=== PATIENT | male | born 1975 | race Caucasian/White ===

== ENCOUNTER → 2021-03-26 16:55 | Outpatient (CLI) | payer OTHER, SELFPAY ==
--- NOTE | ~2021-03-26 | XR_ITS ---
XR lumbar spine min 4V DATE: 03/26/2021 17:13 INDICATION: Low back pain with right sciatica TECHNIQUE: AP, lateral, bilateral oblique views, coned lateral lumbosacral view COMPARISON: 07/28/2012 lumbar spine FINDINGS: There is slight levoscoliosis of the lumbar spine. Normal alignment. No fracture or bone de struction. The lumbar pedicles are intact. Lumbar and lumbosacral interspaces are well preserved. No definite spondylolysis. No spondylolisthesis. The sacroiliac joints are intact. IMPRESSION: Slight levoscoliosis Reviewed, dictated and finalized at location A. IMPRESSION: Slight levoscoliosis
== END ==
PROVIDERS: PCP Family Medicine; Visit Provider Physician Assistant
DX: M54.41 Lumbago with sciatica, right side (principal); M41.86 Other forms of scoliosis, lumbar region
CPT/HCPCS: 72110

== ENCOUNTER 2021-07-18 09:04 | Outpatient (RCR) | payer OTHER, SELFPAY ==
[2021-07-18 09:13] VITALS: BMI 30.9
[2021-07-18 09:14] VITALS: BMI 30.9
== END 2021-10-01 09:42 | disposition home or self-care (01) ==
LOC: ANHDMC 09:04
PROVIDERS: PCP Family Medicine; Visit Provider Physician Assistant Medical
DX: E78.5 Hyperlipidemia, unspecified (principal); Z83.3 Family history of diabetes mellitus; Z83.438 Family history of other disorder of lipoprotein metabolism and other lipidemia; Z71.3 Dietary counseling and surveillance
CPT/HCPCS: 97802

== ENCOUNTER 2024-01-26 07:00 | Outpatient (NON) | payer OTHER, SELFPAY | END 2024-01-26 07:01 | disposition home or self-care (01) | LOC: ANHLAB 01-27 11:55 | PROVIDERS: PCP Family Medicine; Visit Provider Internal Medicine Gastroenterology | DX: Z12.11 Encounter for screening for malignant neoplasm of colon (principal); D12.5 Benign neoplasm of sigmoid colon | CPT/HCPCS: 88305 ==

== ENCOUNTER 2024-01-26 08:08 | Day surgery (SDC) | payer OTHER, SELFPAY ==
[2024-01-13 11:53] VITALS: BMI 27.8
[2024-01-26 09:06] VITALS: BP 119/73; PULSE 63; RESP 18; TEMP 37.1; O2SAT 100
[2024-01-26] MEDS: LACTATED RINGERS 1,000 ML 150 ML IV CONT (09:11)
--- NOTE | 2024-01-26 09:25 | PM.HPGS ---
History of Present Illness History of Present Illness Consent: Risks, benefits, and alternatives have been discussed and questions answered. Patient agrees to proceed with procedure. Chief complaint: Screening for neoplasm of colon Narrative: Edwardo Fischer is a 48 year old male Who was referred for colon cancer screening. Review of Systems Review of Systems: All systems reviewed & are unremarkable except as noted in HPI and below PMFSH Past Medical History Medical History Causalgia of lower limb Pilonidal fistula Reflex sympathetic dystrophy, unspecified Surgical History Surgical History H/O fasciotomy Status post repair of nerve Social History Social History Smoking status: Former smoker Smoking end date: 08/11/04 Additional smoking assessment comments: quit 20 years ago Alcohol intake: current Drinks per week: 2 Substance use type: does not use Lack of Transportation: YES Lack of Food: Sometimes True Current Housing: I Have Housing Concerned About Future Housing: No Difficulty Paying Gas/Electric Bills: No Difficulty Paying for Meds: No Currently Unemployed: No Education: Master's Degree or Higher Difficulty w/ Childcare or Family Care: No Living arrangements: with family Occupation/Education: occupation Gender identity (if verbalized by the patient): Male Spiritual care concerns: No Agree to blood products: Yes Meds Home Medications and Allergies Home Medications Medication Instructions Recorded Confirmed Type No Home Medications 01/12/24 01/26/24 History Allergies Allergy/AdvReac Type Severity Reaction Status Date / Time atorvastatin Allergy Unknown myalgias Verified 01/26/24 09:05 Vital Signs Vital Signs - 24 hr 01/26/24 09:06 Temperature 37.1 C Pulse Rate 63 Respiratory Rate 18 Blood Pressure 119/73 Pulse Oximetry 100 Oxygen Delivery Room Air Exam Const: General: alert Orientation/consciousness: patient oriented x3 Resp: Auscultation: clear to auscultation bilaterally Cardio: Rhythm: regular rhythm GI: GI Palp: Yes Soft to palpation and No Tenderness to palpation present (GI) Neuro: General: patient oriented x3 Assessment and Plan Assessment and plan (1) Colon cancer screening: Code(s): Z12.11 - Encounter for screening for malignant neoplasm of colon Status: Acute Assessment and Plan: Colonoscopy with possible biopsy or polypectomy or cautery or injection of substances.
--- NOTE | 2024-01-26 09:51 | P.PNAN_ITS ---
Anes - Initial Pre Proc Eval Procedure: Operation Date: 01/26/24 10:30 Proposed Procedures p Screening Colonoscopy - Ronnie Aquino MD Date/Time: 01/26/24 09:51 Surgeon: Ronnie Aquino MD Pre Op Diagnosis: Screening for neoplasm of colon Patient Data Age: 48 Gender: M Height: 1.83 m Weight: 92.1 kg Last Vital Signs Temp 37.1 C 01/26/24 09:06 Pulse 63 01/26/24 09:06 Resp 18 01/26/24 09:06 BP 119/73 01/26/24 09:06 Pulse Ox 100 01/26/24 09:06 O2 Del Method Room Air 01/26/24 09:06 Allergies Allergy/AdvReac Type Severity Reaction Status Date / Time atorvastatin Allergy Unknown myalgias Verified 01/26/24 09:05 Home Medications Medication Instructions Recorded Confirmed Type No Home Medications 01/12/24 01/26/24 History Patient hx anesthesia problems: none Family hx anesthesia problems: none Results Review: All pre-operative results and documents have been reviewed as part of the pre- operative evaluation. [facility] Past Medical History Medical History Causalgia of lower limb Pilonidal fistula Reflex sympathetic dystrophy, unspecified Surgical History Surgical History H/O fasciotomy Status post repair of nerve Social History Social History Smoking status: Former smoker Smoking end date: 08/11/04 Additional smoking assessment comments: quit 20 years ago Alcohol intake: current Drinks per week: 2 Substance use type: does not use Lack of Transportation: YES Lack of Food: Sometimes True Current Housing: I Have Housing Concerned About Future Housing: No Difficulty Paying Gas/Electric Bills: No Difficulty Paying for Meds: No Currently Unemployed: No Education: Master's Degree or Higher Difficulty w/ Childcare or Family Care: No Living arrangements: with family Occupation/Education: occupation Gender identity (if verbalized by the patient): Male Spiritual care concerns: No Agree to blood products: Yes Anes - Eval Final PreProcedure Day of Procedure 01/26/24 09:51 Patient weight: overweight Heart: regular rate and rhythm Lungs: clear to auscultation Airway: Mallampati scale class II Neurological: alert and oriented Last oral intake: >/= 8 hours ASA classification: II Emergent: no Anesthetic plan: proceed Anesthesia type and monitoring: general GIVS and standard monitoring Results Review: All pre-operative results and documents have been reviewed as part of the pre- operative evaluation. Informed Consent: The patient's anesthetic plan and its attendant risks and benefits were discussed with the patient/family/POA. Questions were solicited and answers provided to the satisfaction of the patient/family/POA.
[2024-01-26] MEDS: SIMETHICONE ORAL SUSPENSION 20 MG/0.3 ML 30 ML BOTTLE 0.6 ML IRRIGATION (10:43)
[2024-01-26 10:58] VITALS: BP 115/68; PULSE 60; RESP 18; O2SAT 99
[2024-01-26 11:08] VITALS: BP 108/74; PULSE 60; RESP 18; O2SAT 98
[2024-01-26 11:18] VITALS: BP 111/72; PULSE 62; RESP 18; O2SAT 98
--- NOTE | 2024-01-26 11:31 | WPDANESPN ---
Anes - Prog Note Post-Op Date/Time: 01/26/24 11:31 Cardiovascular status: normal Respiratory status: normal Airway patency: baseline Mental status: baseline Post-Op hydration status: normal Vital Signs: Last Vital Signs Temp 37.1 C 01/26/24 09:06 Pulse 62 01/26/24 11:18 Resp 18 01/26/24 11:18 BP 111/72 01/26/24 11:18 Pulse Ox 98 01/26/24 11:18 O2 Del Method Room Air 01/26/24 11:18 Pain Score (VAS): 0/10 I/O: Intake & Output 01/25/24 01/26/24 01/26/24 23:59 07:59 15:59 Intake Total 380 Balance 380 Patient Feedback: Patient satisfied with anesthetic care.
== END 2024-01-26 11:22 | disposition home or self-care (01) ==
PROVIDERS: PCP Family Medicine; Visit Provider Internal Medicine Gastroenterology
PROC: 0DJD8ZZ Inspection of Lower Intestinal Tract, Via Natural or Artificial Opening Endoscopic (ICD-10-PCS; CPT 45378; principal; 2024-01-26 10:30)
DX: Z12.11 Encounter for screening for malignant neoplasm of colon (principal); D12.5 Benign neoplasm of sigmoid colon
CPT/HCPCS: 45385

== ENCOUNTER 2024-12-03 19:48 | Emergency (ER) | payer OTHER, SELFPAY ==
[2024-12-03 19:49] VITALS: BP 139/76; PULSE 90; RESP 18; TEMP 36.7; O2SAT 96
--- OUTSIDE RECORDS SUMMARY | 2024-12-03 19:50 | XMS_ITS | Referral Summary ---
Author Organization [facility] Address [address] [place] [address] Care Team Providers Care Automatic Chief Name Role Phone Chelsea Mccormick MD Primary Care Provider [phone] Soco Weeks MD Unavailable [phone] Encounters Date Type Department Care Team Description 11/25/2024 12:30 PM CDT Office Visit [facility] [address] [facility] [address] [place] [address] Soco Weeks MD Adjustment disorders, with depressed mood (Primary Dx); Narcissistic personality disorder (HCC) 11/24/2024 1:00 PM CDT Office Visit [facility] [address] [place] [phone] Leon Byrd, PhD Adjustment disorder with mixed anxiety and depressed mood (Primary Dx); Other chronic pain 11/20/2024 12:08 PM CDT - 11/22/2024 3:46 PM CDT Hospital Encounter [facility] [address] [place] [id number] Jethro Pena MD Trillo Alvarez, Ludwig, MD Adjustment disorders, with depressed mood (Primary Dx); Cannabis use disorder, mild; Chronic pain syndrome; Normocytic anemia Discharge Disposition: Discharge to home or self care 11/19/2024 3:13 PM CDT - 11/20/2024 12:02 PM CDT Emergency [facility] [address] [place] [address] Anxiety (Primary Dx); Depression, unspecified depression type Discharge Disposition: Discharge to psych hospital or psych unit 11/17/2024 9:00 AM CDT Office Visit [facility] [place] [address] Leon Byrd, PhD Adjustment disorder with mixed anxiety and depressed mood (Primary Dx); Other chronic pain 11/11/2024 4:08 AM CDT - 11/11/2024 8:15 AM CDT Emergency [facility] [address] [place] [phone] Manolo Allen MD Beirne, Gregory J., Mental health problem (Primary Dx); Depression, unspecified depression type Discharge Disposition: Discharge to home or self care 11/10/2024 9:00 AM CDT Office Visit [facility] [place] [phone] Leon Byrd, PhD Adjustment disorder with mixed anxiety and depressed mood (Primary Dx); Other chronic pain 11/08/2024 Telephone [facility] [address] [place] [phone] Leon Byrd, PhD Mental Health Crisis (November called this morning concerned for Chelsea. She stated he is closing himself off from everyone. Her and their daughter recently left the house to stay with family b/c of how bad things have gotten. Chelsea has gotten rid of his phone and she is not able to contact ia. He has also started giving away other personal items such as jewelry. He is also calling family he has not spoken with in a while. She does not think he will harm himself but is not 100% sure due to his changes in behavior.); Mental Health Problem (Cont'd: November asked if we could recommend an inpatient facility to take Chelsea to because he is spiraling out of control in a bad way. I provided November the address & phone numbers to multiple facilities to get assistance: [facility] [phone], [address], [address]; [facility] [phone], [address] , [address], and Mental health crisis line [phone]. Blanca says she will call back if anything changes. Chelsea currently sees Dr. 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 Office Visit [facility] [address] [place] [phone] Leon Byrd, PhD Other chronic pain (Primary Dx); Adjustment disorder with mixed anxiety and depressed mood 10/06/2024 9:00 AM 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 Office Visit [facility] [address] [place] [phone] Leon Byrd, PhD Other chronic pain (Primary Dx); Adjustment disorder with mixed anxiety and depressed mood from Last 3 Months Allergies No known active allergies Medications traZODone (DESYREL) 50 mg tabletIndicatio ns:insomnia associated with depression Take 1 tablet (50 mg total) by mouth nightly as needed for sleep 30 tablet 1 5 01/22/20 25 Active melatonin 5 mg tablet Take 1 tablet (5 mg total) by mouth nightly as needed (sleep) 11/23/19 25 Discontinu ed(Stop Taking at Discharge) nicotine polacrilex (NICORETTE) 2 mg gum Chew 1 each (2 mg total) as needed for smoking cessation 11/23/19 25 Discontinu ed(Stop Taking at Discharge) acetaminophen (TYLENOL) 325 mg tablet Take 2 tablets (650 mg total) by mouth every 6 (six) hours as needed for pain (leg pain) 11/23/19 25 Discontinu ed(Stop Taking at Discharge) Active Problems Problem Noted Date Diagnosed Date Normocytic anemia 11/21/2024 Assessment & Plan (11/21/2024 10:27 AM CDT): Mild normocytic anemia x2, normal RDW. - Obtain iron panel, reticulocyte count, B12, folate Healthcare maintenance 11/21/2024 Assessment & Plan (11/21/2024 10:27 AM CDT): Lipids: Ordered HIV: Ordered HCV: Ordered HBV: Ordered A1c: Ordered Colon cancer screening: not done Lung cancer screening: Cannabis use disorder, mild 11/21/2024 Adjustment disorders, with depressed mood 2024 Pilonidal sinus without abscess 02/20/2015 Chronic pain 02/24/2013 Assessment & Plan (11/21/2024 10:27 AM CDT): - Tylenol, ibuprofen for pain - Scheduled lidocaine patches - Nicotine gum available Neuralgia 02/24/2013 Reflex sympathetic dystrophy 09/17/2012 Arthralgia of ankle 05/18/2012 Pain in extremity 01/16/2012 Immunizations Immunization Administration Dates Next Due Hep A / Hep B 01/18/2008 Tetanus toxoid, adsorbed 01/18/2008 Social History Tobacco Use Types Packs/Day Years Used Date Smoking Tobacco: Former Smokeless Tobacco: Never Alcohol Use Standard Drinks/Week Comments Yes 0 (1 standard drink = 0.6 oz pur e alcohol) [facility] Utilities Answer Date Recorded In the past 12 months has e [employer], gas, oil, or water [employer] threatened to shut off services in your home? No 11/20/2024 Humiliation, Afraid, Rape, and Kick questionnair e Answer Date Recorded Within the last year, have y ou been afraid of your partner or ex-partner? No 11/20/2024 Within the last year, have y ou been humiliated or emotionally abused in other ways by your partner or ex-partner? No Within the last year, have y ou been kicked, hit, slapped, or otherwise physically hurt by your partner or ex-partner? No 11/20/2024 Within the last year, have y ou been raped or forced to have any kind of sexual activity by your partner or ex-partner? No 11/20/2024 Social Connection and Isolat ion Panel [NHANES] Answer Date Recorded In a typical week, how many times do you talk on the phone with family, friends, or neighbors? More than three times a week 11/20/2024 How often do you get togethe r with friends or relatives? More than three times a week 11/20/2024 How often do you attend chur or mandaeism services? Never 11/20/2024 Do you belong to any clubs o r organizations such as lutheran groups, unions, fraternal or athletic groups, or school groups? No 11/20/2024 How often do you attend meet ings of the clubs or organizations you belong to? Never 11/20/2024 Are you , , di vorced, , never , or living with a partner? 11/20/2024 AUDIT-C Answer Date Recorded Q1: How often do you have a drink containing alc ohol? Patient declined 11/20/2024 Q2: How many drinks containi ng alcohol do you have on a typical day when you are drinking? Patient declined 11/20/2024 Q3: How often do you have si x or more drinks on one occasion? Patient declined 11/20/2024 Overall Financial Resource Strain (CARDIA) Answe r Date Recorded How hard is it for you to pa y for the very basics like food, housing, medical care, and heating? Not hard at all 11/20/2024 PHQ-2 Answer Date Recorded PHQ-2 Total Score (If total score is 3 or more points, staff should administer the PHQ-9) 2 11/20/2024 Exercise Vital Sign Answer Date Recorde d On average, how many days pe r week do you engage in moderate to strenuous exercise (like a brisk walk)? Patient declined On average, how many minutes do you engage in exercise at this level? Patient declined 11/20/2024 Hunger Vital Sign Answer Date Recorded Within the past 12 months, y ou worried that your food would run out before you got the money to buy more. Never true 11/21/19 25 Within the past 12 months, t he food you bought just didn't last and you didn't have money to get more. Never true 11/20/2024 PRAPARE - Transportation Answer Date Re corded In the past 12 months, has l ack of transportation kept you from medical appointments or from getting medications? No 11/09 In the past 12 months, has l ack of transportation kept you from meetings, work, or from getting things needed for daily living? No 11/20/2024 PHQ-9 Answer Date Recorded PHQ-9 Total Score 2 11/20/2024 Housing Stability Vital Sign Answer Eh e Recorded In the last 12 months, was t here a time when you were not able to pay the mortgage or rent on time? No 11/20/2024 Number of Times Moved in the Last Year Not on fi le 11/20/2024 At any time in the past 12 m [facility], were you homeless or living in a [facility] (including now)? No 11/20/2024 Personal Safety Answer Date Recorded Have you ever been in or are you currently in a harmful physical or emotional relationship or is someone making you feel afraid or unsafe? 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 Answer Date of Assessment Author No 11/20/2024 2:09 PM CDT Teresa Valdez LCSW * Are you blind or do you have serious difficulty seeing, even when wearing glasses? Answer Date of Assessment Author No 11/20/2024 2:09 PM CDT Teresa Valdez LCSW * Do you have serious difficulty walking or climbing stairs? Answer Date of Assessment Author No 11/20/2024 2:09 PM CDT Teresa Valdez LCSW * Do you have serious difficulty dressing or bathing? Answer Date of Assessment Author No 11/20/2024 2:09 PM CDT Teresa Valdez LCSW * Because of a physical, mental, or emotional condition, do you have serious difficulty doing errandsalone such as visiting the doctor? Answer Date of Assessment Author No 11/20/2024 2:09 PM CDT Teresa Valdez LCSW Mental Status * Because of a physical, mental, or emotional condition, do you have serious difficulty concentrating, remembering, or making decisions? (5 years old or older) Answer Entry Date Author No 11/20/2024 2:09 PM CDT Teresa Valdez LCSW Plan of Treatment Not on file Procedures Procedure Name Priority Date/Time Associated Diagnosis Comments HEMOGLOBIN A1C Routine 11/22/2024 5:22 AM CDT RETICULOCYTES Routine 11/22/2024 5:22 AM CDT FOLATE Routine 11/22/2024 5:22 AM CDT VITAMIN B12 Routine 11/22/2024 5:22 AM CDT FERRITIN Routine 11/22/2024 5:22 AM CDT IRON PROFILE W/ IBC Routine 11/22/2024 5 :22 AM CDT HEPATITIS B SURFACE ANTIGEN Routine 11/22/2024 5:22 AM CDT HEPATITIS B SURFACE ANTIBODY (IMMUNE STATUS) Routine 11/22/2024 5:22 AM CDT HEPATITIS B CORE ANTIBODY, TOTAL Routine 11/22/2024 5:22 AM CDT HEPATITIS C ANTIBODY Routine 11/22/2024 5:22 AM CDT HIV 1/2 ANTIBODY PLUS P24 ANTIGEN Routine 11/22/2024 5:22 AM CDT COVID-19 CORONAVIRUS RNA STAT 11/20/2024 5:30 AM CDT DRUGS OF ABUSE SCREEN, URINE WITHOUT CONFIRMATION STAT 11/19/2024 4:39 PM CDT URINALYSIS AND REFLEX TO MICROSCOPIC AND CULTURE STAT 11/19/2024 4:39 PM CDT LIPID PANEL STAT 11/19/2024 4:01 PM CDT EGFR STAT 11/19/2024 4:01 PM CDT DIFFERENTIAL AUTO STAT 11/19/2024 4:0 1 PM CDT THYROID FUNCTION CASCADE STAT 11/19/2024 4:01 PM CDT ETHANOL STAT 11/19/2024 4:01 PM CDT CBC WITH AUTO DIFFERENTIAL STAT 11/19/2024 4:01 PM CDT BASIC METABOLIC PANEL STAT 11/19/2024 4:01 PM CDT DRUGS OF ABUSE SCREEN, URINE WITHOUT CONFIRMATION STAT 11/11/2024 5:02 AM CDT URINALYSIS AND REFLEX TO MICROSCOPIC AND CULTURE STAT 11/11/2024 5:02 AM CDT EGFR STAT 11/11/2024 4:38 AM CDT BASIC METABOLIC PANEL STAT 11/11/2024 4:38 AM CDT DIFFERENTIAL AUTO STAT 11/11/2024 4:3 8 AM CDT ACETAMINOPHEN LEVEL STAT 11/11/2024 4 :38 AM CDT SALICYLATE LEVEL STAT 11/11/2024 4:3 8 AM CDT HEPATIC FUNCTION PANEL STAT 4:38 AM CDT ETHANOL STAT 11/11/2024 4:38 AM CDT CBC WITH AUTO DIFFERENTIAL STAT 11/11/2024 4:38 AM CDT from Last 3 Months Results * Iron profile w/ IBC (11/22/2024 5:22 AM CDT) Pathologist [facility] Iron 95 50 - 150 mcg/dL TIBC 299 250 - 400 mcg/dL [facility] Transferrin saturation 32 20 - 50 % [facility] Blood 11/22/2024 5:22 AM CDT 11/22/2024 9:34 AM CDT Earl Dos Santos MD LAB BLOOD ORDERABLES Final Result [facility] [place] [address] * HIV 1/2 Antibody plus p24 Antigen Blood (11/22/2024 5:22 AM CDT) Pathologist [facility] HIV 1/2 ab + p24 ag Nonreactive Nonreactive Comment:Nonreactive for HIV- 1 antigen and HIV-1/HIV-2 antibodies. No laboratory evidence of HIV infection. If acute HIV infection is suspected, consider testing for HIV-1 RNA. Current interpretive data was last revised on 22. Blood 11/22/2024 5:22 AM CDT 11/22/2024 9:34 AM CDT Earl Dos Santos MD LAB MICROBIOLOGY - G ENERAL ORDERABLES Final Result Performing Organization Address [facility] Co de Phone Number [facility] [place] [address] * Hepatitis C antibody Blood (11/22/2024 5:22 AM CDT) Hep C Ab Nonreactive Nonreactive Comment:Antibodies to HCV no t detected. Does NOT exclude the possibility of recent exposure to HCV. Current interpretive data was last revised on 22 Blood 11/22/2024 5:22 AM CDT 11/22/2024 9:34 AM CDT Earl Dos Santos MD LAB MICROBIOLOGY - G ENERAL ORDERABLES Final Result Performing Organization Address [facility] [place] [place] [address] * Hepatitis B core antibody, total Blood (11/22/2024 5:22 AM CDT) Pathologist [facility] Hep B core IgG/IgM Nonreactive Nonreactive Blood 11/22/2024 5:22 AM CDT 11/22/2024 9:34 AM CDT Earl Dos Santos MD LAB MICROBIOLOGY - G ENERAL ORDERABLES Final Result Performing Organization Address [facility] Co de Phone Number [facility] [place] [address] * Hepatitis B surface antibody (immune status) Blood (11/22/2024 5:22 AM CDT) HBsAb (immune status) Nonreactive Comment:This result is consi stent with a lack of immunity to Hepatitis B Virus when used in the setting of routine screening. Current interpretative data was last revised on 22 Blood 11/22/2024 5:22 AM CDT 11/22/2024 9:34 AM CDT Earl Dos Santos MD LAB MICROBIOLOGY - G ENERAL ORDERABLES Final Result Performing Organization Address [facility] Co de Phone Number [facility] [place] [address] * Hepatitis B Surface Antigen Blood (11/22/2024 5:22 AM CDT) Pathologist [facility] HepBsAg Nonreactive Nonreactive Blood 11/22/2024 5:22 AM CDT 11/22/2024 9:34 AM CDT Earl Dos Santos MD LAB MICROBIOLOGY - G ENERAL ORDERABLES Final Result Performing Organization Address [facility] de Phone Number [facility] [place] [place] [address] * (ABNORMAL) Reticulocyte Count (11/22/2024 5:22 AM CDT) [facility] Retics, absolute 106(H) 20 - 87 K/cumm Retics 2.5 0.4 - 2.9 % [facility] Reticulocyte Hgb 34.3 30.5 - 38.0 pg [facility] Blood 11/22/2024 5:22 AM CDT 11/22/2024 9:34 AM CDT Earl Dos Santos MD LAB BLOOD ORDERABLES Final Result Performing Organization Address [facility] Co de Phone Number [facility] [place] [address] * Hemoglobin A1c (11/22/2024 5:22 AM CDT) [facility] Hgb A1C 5.4 4.0 - 5.6 % Estimated Average Glucose 108 mg/dL [facility] Comment: The ADA recommends reporting an estimated Average Glucose (eAG) with all Hemoglobin A1c results using the equation derived from a study of 507 normal and diabetic adults. Minority populations were underrepresented and children were not included. (Diabetes Care 2020; 43(S1): S66-S76). The eAG is not equivalent to a fasting glucose. Blood 11/22/2024 5:22 AM CDT 11/22/2024 9:34 AM CDT Earl Dos Santos MD LAB BLOOD ORDERABLES Final Result Performing Organization Address [facility] Co de Phone Number [facility] [place] [address] * Folate (11/22/2024 5:22 AM CDT) Pathologist [facility] Folic acid >20.0 >=5.0 ng/mL Blood 11/22/2024 5:22 AM CDT 11/22/2024 9:34 AM CDT Earl Dos Santos MD LAB BLOOD ORDERABLES Final Result Performing Organization Address [facility] de Phone Number [facility] [place] [address] * Ferritin (11/22/2024 5:22 AM CDT) Pathologist [facility] Ferritin 197 30 - 400 ng/mL Blood 11/22/2024 5:22 AM CDT 11/22/2024 9:34 AM CDT Earl Dos Santos MD LAB BLOOD ORDERABLES Final Result Performing Organization Address [facility] de Phone Number [facility] [place] [address] * Vitamin B12 (11/22/2024 5:22 AM CDT) Vitamin B12 317 230 - 1,250 pg/mL Blood 11/22/2024 5:22 AM CDT 11/22/2024 9:34 AM CDT Earl Dos Santos MD LAB BLOOD ORDERABLES Final Result SHAILA NGUYEN [facility] [place] [address] * COVID-19 Coronavirus RNA Nasopharyngeal (11/20/2024 5:30 AM CDT) [facility] COVID-19 RNA Negative Negative Nasopharyngeal 11/20/2024 5: 30 AM CDT 11/20/2024 5:44 AM CDT Narrative [facility] [employer] - 11/20/2024 6:18 AM CDT Is the patient experiencing any symptoms consistent with COVID (eg. Fever, cough, shortness of breath)?->No What is the reason for testing?->Screening prior to Behavioral health admission Interpretive data Testing performed by [facility]. This test is performed using the [employer] Xpert Xpress CoV-2 plus assay. This is a real-time RT-PCR test intended for the qualitative detection of nucleic acid from the SARS-CoV-2. This assay has been cleared by the [place] Food and Drug administration. The performance characteristics have been verified by the [facility]. Results must be considered in the clinical context, and a negative result does not rule out infection. Interpretive data last revised 2024. Interpretive data Testing performed by [facility]. This test is performed using the [employer] Xpert Xpress CoV-2 plus assay. This is a real-time RT-PCR test intended for the qualitative detection of nucleic acid from the SARS-CoV-2. This assay has been cleared by the [place] Food and Drug administration. The performance characteristics have been verified by the [facility]. Results must be considered in the clinical context, and a negative result does not rule out infection. Interpretive data last revised 2024. us Latasha Mann NP LAB MICROBIOLOGY - GENERAL ORDERABLES Final Result [facility] [employer] [facility] [address] Department [place] [address] * Urinalysis reflex to microscopic and culture Urine (11/19/2024 4:39 PM CDT) Color, ur Straw Yellow Clarity, ur Clear Clear [facility] Specific gravity, ur 1.005 1.003 - 1.030 [facility] pH, urine 6.5 [facility] Comment: Interpretive Data U rine pH is affected by diet, medications, systemic acid-base disturbances, and renal tubular function. pH may affect urinary stone formation. For example, urine pH below 6.0 may help reduce the tendency for calcium phosphate stones and pH greater than 6.0 may reduce the tendency for uric acid stone formation. Source: [facility] Current Interpretive Data was last revised on 2017 Protein, ur ql Negative Negative [facility] Glucose, ur ql Negative Negative [facility] Ketones, ur Negative Negative [facility] Bilirubin, ur Negative Negative [facility] Blood, ur Negative Negative [facility] Urobilinogen, ur <2.0 <2.0 mg/dL [facility] Nitrite, ur Negative Negative [facility] Leukocyte esterase, ur Negative Negative [facility] UA reflex comment Reflex conditions for microscopic UA and culture not met. [facility] Urine 11/19/2024 4:39 PM CDT 11/19/2024 4:39 PM CDT Venessa HORTON LAB MICROBIOLOGY - ASIYA AL ORDERABLES Final Result [facility] [employer] [facility] [address] Department [place] [address] * (ABNORMAL) Drugs of Abuse Screen, Urine without Confirmation (11/19/2024 4:39 PM CDT) Amphetamine, ur Not Detected [facility] 500ng/mL Comment: Interpretive Data - Amphetamines: Samples containing greater than 500 ng/mL d-methamphetamine or other cross-reacting amphetamine compounds are reported as positive. Amphetamine immunoassays are subject to significant false positive rates due to cross-reactivity of non-amphetamine drugs. Confirmatory testing required for definitive results. Current Interpretive Data was last reviewed 2023. Barbiturates, ur Not Detected CutOff 200ng/mL [facility] Comment: Interpretive Data - Barbiturates: Samples containing greater than 200 ng/mL secobarbital or other cross-reacting barbiturate compounds are reported as positive. False positive and false negative results are possible. Confirmatory testing required for definitive results. Current Interpretive Data was last reviewed 2023. Benzodiazepines, ur Not Detected CutOff 100ng/mL [facility] Comment: Interpretive Data - Benzodiazepines: Samples containing greater than 100 ng/mL nordiazepam or other cross-reacting compounds are reported as positive. False positive and false negative results are possible. Confirmatory testing required for definitive results. Current Interpretive Data was last reviewed 2023. Cannabinoids, ur Screen Positive, presumptive (A) CutOff 50 ng/mL [facility] Comment: Interpretive Data - Cannabinoids: Samples containing greater than 50 ng/mL delta-9 THC -COOH or other cross- reacting compounds are reported as positive. False positive and false negative results are possible. Confirmatory testing required for definitive results. Current Interpretive Data was last reviewed 2023. Cocaine, ur Not Detected CutOff 150ng/mL [facility] Comment: Interpretive Data - Cocaine: Samples containing greater than 150 ng/mL benzoylecgonine or other cross- reacting compounds are reported as positive. False positive and false negative results are possible. Confirmatory testing required for definitive results. Current Interpretive Data was last reviewed 2023. Fentanyl, Ur Not Detected CutOff 5 ng/mL [facility] Comment: Interpretive Data - Fentanyl: Samples containing greater than 5 ng/mL norfentanyl, fentanyl, or other cross-reacting fentanyl compounds are reported as positive. False positive and false negative results are possible. Confirmatory testing required for definitive results. Current Interpretive Data was last reviewed 2023. Methadone, ur Not Detected CutOff 300ng/mL [facility] Comment: Interpretive Data - Methadone: Samples containing greater than 300 ng/mL d,l-methadone or other cross-reacting compounds are reported as positive. False positive and false negative results are possible. Confirmatory testing required for definitive results. Current Interpretive Data was last reviewed 2023. Opiates, ur Not Detected CutOff 300ng/mL [facility] Comment: Interpretive Data - Opiates: Samples containing greater than 300 ng/mL morphine or other cross-reacting compounds are reported as positive. False positive and false negative results are possible. Confirmatory testing required for definitive results. Current Interpretive Data was last reviewed 2023. Oxycodone, ur Not Detected CutOff 100ng/mL [facility] Comment: Interpretive Data - Oxycodone: Samples containing greater than 100 ng/mL oxycodone or other cross-reacting compounds are reported as positive. False positive and false negative results are possible. Confirmatory testing required for definitive results. Current Interpretive Data was last reviewed 2023. Phencyclidine, ur Not Detected CutOff 25 ng/mL [facility] Comment: Interpretive Data - Phencyclidine: Samples containing greater than 25 ng/mL phencyclidine or other cross-reacting compounds are reported as positive. False positive and false negative results are possible. Confirmatory testing required for definitive results. Current Interpretive Data was last reviewed 2023. Urine Creatinine 40 mg/dL [facility] Comment: Interpretive Data Urine Creatinine: < 10 mg/dL is extremely dilute = or > 10 but < 20 mg/dL is dilute = or > 20 mg/dL is normal Current Interpretive Data was last revised on 2017. Urine 11/19/2024 4:39 PM CDT 11/19/2024 4:58 PM CDT Narrative [facility] - 11/19/2024 5:28 PM CDT Drug of Abuse screening is performed by immunoassay for medical purposes only. This is not to be used for Pain Management purposes. Venessa HORTON LAB URINE ORDERABLES Fin al Result [facility] [address] [place] [address] * eGFR (11/19/2024 4:01 PM CDT) eGFR >90 >=60 mL/min/1. 73 m2 Comment: Interpretive Data Reference Interval Normal >/= 90 mL/min/1.73m2 Mildly decreased* 60 - 89 mL/min/1.73m2 Mildly to moderately decreased 45 - 59 mL/min/1.73m2 Moderately to severely decreased 30 - 44 mL/min/1.73m2 Severely decreased 15 - 29 mL/min/1.73m2 Kidney Failure < 15 mL/min/1.73m2 *Relative to young adult level Estimated glomerular filtration rate is determined by the 2020 CKD-EPI equation recommended by the National Kidney Foundation (A Unifying Approach to GFR Estimation: Recommendations of the NKF-ASK Task Force on Reassessing the Inclusion of Race in Diagnosing Kidney Disease, JASN 2020). The CKD-EPI equation should not be used for patients with unstable renal function and has not been validated in children and those over 70. Current interpretive data was last reviewed 2021. Blood 11/19/2024 4:01 PM CDT 11/19/2024 4:11 PM CDT Venessa HORTON LAB BLOOD ORDERABLES [facility] al Result [facility] [address] Department of Laboratories [place], [place] [id number] * Differential, auto (11/19/2024 4:01 PM CDT) Neutrophil abs 3.37 1.50 - 6.50 K/cumm Imm gran abs 0.02 0.00 - 0.10 K/cumm [facility] Lymphocyte abs 1.74 0.80 - 3.30 K/cumm [facility] Monocyte abs 0.43 0.20 - 0.80 K/cumm [facility] Eosinophil abs 0.05 0.00 - 0.50 K/cumm [facility] Basophil abs 0.04 0.00 - 0.10 K/cumm [facility] Neutrophil pct 59.6 % [facility] Comment: Interpretive Data Percent cell count reference ranges are not reported, since discordance with absolute values may lead to misinterpretation of CBC data. Current Interpretive Data was last revised on 2017. Imm gran pct 0.4 % [facility] Comment: Interpretive Data Percent cell count reference ranges are not reported, since discordance with absolute values may lead to misinterpretation of CBC data. Current Interpretive Data was last revised on 2017. Lymphocyte pct 30.8 % [facility] Comment: Interpretive Data Percent cell count reference ranges are not reported, since discordance with absolute values may lead to misinterpretation of CBC data. Current Interpretive Data was last revised on 2017. Monocyte pct 7.6 % [facility] Comment: Interpretive Data Percent cell count reference ranges are not reported, since discordance with absolute values may lead to misinterpretation of CBC data. Current Interpretive Data was last revised on 2017. Eosinophil pct 0.9 % [facility] Comment: Interpretive Data Percent cell count reference ranges are not reported, since discordance with absolute values may lead to misinterpretation of CBC data. Current Interpretive Data was last revised on 2017. Basophil pct 0.7 % [facility] Comment: Interpretive Data Percent cell count reference ranges are not reported, since discordance with absolute values may lead to misinterpretation of CBC data. Current Interpretive Data was last revised on 2017. Blood 11/19/2024 4:01 PM CDT 11/19/2024 4:11 PM CDT Venessa HORTON LAB BLOOD ORDERABLES Fin al Result Performing Organization Address [facility] Co de Phone Number [facility] [address] [facility] [place] [address] * Thyroid Function [place] (11/19/2024 4:01 PM CDT) TSH 0.42 0.30 - 4.20 mcIUnit/mL Blood 11/19/2024 4:01 PM CDT 11/19/2024 4:11 PM CDT Venessa Chapa MT LAB BLOOD ORDERABLES Fin al Result Performing Organization Address City/[facility]/ZIP Co de Phone Number [facility] [address] [place] [address] * (ABNORMAL) CBC with auto differential (11/19/2024 4:01 PM CDT) [facility] WBC 5.65 3.80 - 9.90 K/cumm Hgb 12.8(L) 13.0 - 17.5 g/dL [facility] Hct 36.8(L) 38.9 - 50.3 % [facility] Plt 335 150 - 400 K/cumm [facility] MPV 9.6 9.1 - 12.3 fL [facility] RBC 4.25(L) 4.30 - 5.80 M/cumm [facility] MCV 86.6 81.3 - 96.4 fL [facility] MCH 30.1 27.1 - 33.3 pg [facility] MCHC 34.8 32.3 - 35.7 g/dL [facility] RDW CV 12.2 11.1 - 14.9 % [facility] RDW SD 38.5 35.7 - 48.1 fL [facility] NRBC abs 0.00 0.00 - 0.01 K/cumm [facility] Blood 11/19/2024 4:01 PM CDT 11/19/2024 4:11 PM CDT Venessa HORTON LAB BLOOD ORDERABLES Fin al Result [facility] [address] [place] [address] * Ethanol (11/19/2024 4:01 PM CDT) [facility] Ethanol <10 <=10 mg/dL Comment: Interpretive Data Legal limit of intoxication > or = 80 mg/dL Levels > or = 400 mg/dL are potentially TOXIC. Current interpretive data was last revised on 2018. Blood 11/19/2024 4:01 PM CDT 11/19/2024 4:10 PM CDT Venessa HOTRON LAB BLOOD ORDERABLES Fin al Result [facility] [address] [place] [address] * (ABNORMAL) Lipid panel (11/19/2024 4:01 PM CDT) Cholesterol 218(H) 30 - 199 mg/dL Comment: Interpretive Data Ages < or = 19 years Acceptable: <170 mg/dL Borderline high: 170-199 mg/dL High: >or= 200 mg/dL Ages > or = 20 years Desirable: <200 mg/dL Borderline high: 200-239 mg/dL High: >or= 240 mg/dL Literature References: 1. Expert Panel on Integrated Guidelines for Cardiovascular Health and Risk Reduction in Children and Adolescents. Pediatrics 2011;128:S213 2. NCEP Expert Panel. Circulation 2004;110:227 Current Interpretive Data was last revised on 2018. Triglycerides 115 <=149 mg/dL [facility] Comment: Interpretive Data Ages < or = 9 years Acceptable: <75 mg/dL Borderline high: 75-99 mg/dL High: >or= 100 mg/dL Ages 10 to 20 years Acceptable: <90 mg/dL Borderline high: 90-129 mg/dL High: >or= 130 mg/dL Ages > or = 20 years Desirable: <150 mg/dL Borderline high: 150-199 mg/dL High: 200-499 mg/dL Very high: >or= 499 mg/dL Literature References: 1. Expert Panel on Integrated Guidelines for Cardiovascular Health and Risk Reduction in Children and Adolescents. Pediatrics 2011;128:S213 2. NCEP Expert Panel. Circulation 2004;110:227 Current Interpretive Data was last revised on 2018. HDL 47 >=40 mg/dL [facility] Comment: Interpretive Data Ages < or = 19 years Acceptable: >45 mg/dL Borderline low: 40-45 mg/dL Low: <40 mg/dL Ages > or = 20 years Desirable: >or= 60 mg/dL Low: <40 mg/dL Literature References: 1. Expert Panel on Integrated Guidelines for Cardiovascular Health and Risk Reduction in Children and Adolescents. Pediatrics 2011;128:S213 2. NCEP Expert Panel. Circulation 2004;110:227 Current Interpretive Data was last revised on 2018. LDL, calculated 150(H) <=129 mg/dL [facility] Comment: Interpretive Data Ages < or = 19 years Acceptable: <110 mg/dL Borderline high: 110-129 mg/dL High: >or= 130 mg/dL Ages > or = 20 years Optimal: <100 mg/dL Near optimal: 100-129 mg/dL Borderline high: 130-159 mg/dL High: >160 mg/dL Calculated using the Bruce LDL-C estimating equation. This equation was implemented on 2024. Prior to this date LDL-C was estimated using the Friedewald equation. Literature References: 1. Expert Panel on Integrated Guidelines for Cardiovascular Health and Risk Reduction in Children and Adolescents. Pediatrics 2011;128:S213 2. NCEP Expert Panel. Circulation 2004;110:227 3. Bruce Ortega et al. AAD Cardiol. 2020 December 09;5(5):540-548. doi: 10.1001/jamacardio.2020.0013 Current Interpretive Data was last revised on 2024. Non-HDL Cholesterol 171 mg/dL [facility] Comment: Interpretive Data Ages < or = 19 years Acceptable: <120 mg/dL Borderline high: 120-144 mg/dL High: >145 mg/dL Ages > or = 20 years When triglycerides are >200 mg/dL, Non-HDL cholesterol is a secondary target of therapy with treatment goals that are 30 mg/dL greater than the LDL cholesterol target. Literature References: 1. Expert Panel on Integrated Guidelines for Cardiovascular Health and Risk Reduction in Children and Adolescents. Pediatrics 2011;128:S213 2. NCEP Expert Panel. Circulation 2004;110:227 Current Interpretive Data was last revised on 2018. Chol/HDL ratio 5 [facility] Blood 11/19/2024 4:01 PM CDT 11/19/2024 4:11 PM CDT us Earl Dos Santos MD LAB BLOOD ORDERABLES Final Result [facility] [address] Department [place] [address] * (ABNORMAL) Basic metabolic panel (11/19/2024 4:01 PM CDT) Sodium 137 135 - 145 mmol/L Potassium, pl 4.2 3.3 - 4.9 mmol/L [facility] Chloride 99 97 - 110 mmol/L [facility] CO2 26 22 - 32 mmol/L [facility] Anion gap 12 2 - 15 mmol/L [facility] BUN 4(L) 6 - 25 mg/dL [facility] Creatinine 0.78(L) 0.80 - 1.30 mg/dL [facility] Glucose 117 70 - 199 mg/dL [facility] Comment: Interpretive Data Fasting glucose >/= 126 mg/dl is diagnostic for diabetes. Fasting is defined as no caloric intake for at least 8 hours. Fasting glucose between 100 mg/dl to 125 mg/dl is diagnostic of prediabetes. In a patient with classic symptoms of hyperglycemia or hyperglycemic crisis, a random glucose >/= 200 mg/dl is diagnostic for diabetes. In the absence of unequivocal hyperglycemia, results should be confirmed by repeat testing. The classification and Diagnosis of Diabetes Diabetes Care 2021; 46: S19-S40. Current interpretive data was last revised 2022. Calcium 9.4 8.5 - 10.3 mg/dL [facility] Blood 11/19/2024 4:01 PM CDT 11/19/2024 4:11 PM CDT Venessa HORTON LAB BLOOD ORDERABLES [facility] al Result [facility] [address] [place] [address] * Urinalysis reflex to microscopic and culture Urine (11/11/2024 5:02 AM CDT) Pathologist [facility] Color, ur Straw Yellow Clarity, ur Clear Clear [facility] Specific gravity, ur 1.005 1.003 - 1.030 [facility] pH, urine 7.0 [facility] Comment: Interpretive Data U rine pH is affected by diet, medications, systemic acid-base disturbances, and renal tubular function. pH may affect urinary stone formation. For example, urine pH below 6.0 may help reduce the tendency for calcium phosphate stones and pH greater than 6.0 may reduce the tendency for uric acid stone formation. Source: [facility] Current Interpretive Data was last revised on 2017 Protein, ur ql Negative Negative [facility] Glucose, ur ql Negative Negative [facility] Ketones, ur Negative Negative [facility] Bilirubin, ur Negative Negative [facility] Blood, ur Negative Negative [facility] Urobilinogen, ur <2.0 <2.0 mg/dL [facility] Nitrite, ur Negative Negative [facility] Leukocyte esterase, ur Negative Negative [facility] UA reflex comment Reflex conditions for microscopic UA and culture not met. [facility] Urine 11/11/2024 5:02 AM CDT 11/11/2024 5:21 AM CDT Manolo Allen MD LAB MICROBIOLOGY - GENE [facility] ORDERABLES Final Result [facility] [address] Department [place] [address] * (ABNORMAL) Drugs of Abuse Screen, Urine without Confirmation (11/11/2024 5:02 AM CDT) Amphetamine, ur Not Detected CutOff 500ng/mL Comment: Interpretive Data - Amphetamines: Samples containing greater than 500 ng/mL d-methamphetamine or other cross-reacting amphetamine compounds are reported as positive. Amphetamine immunoassays are subject to significant false positive rates due to cross-reactivity of non-amphetamine drugs. Confirmatory testing required for definitive results. Current Interpretive Data was last reviewed 2023. Barbiturates, ur Not Detected CutOff 200ng/mL [facility] Comment: Interpretive Data - Barbiturates: Samples containing greater than 200 ng/mL secobarbital or other cross-reacting barbiturate compounds are reported as positive. False positive and false negative results are possible. Confirmatory testing required for definitive results. Current Interpretive Data was last reviewed 2023. Benzodiazepines, ur Not Detected CutOff 100ng/mL [facility] Comment: Interpretive Data - Benzodiazepines: Samples containing greater than 100 ng/mL nordiazepam or other cross-reacting compounds are reported as positive. False positive and false negative results are possible. Confirmatory testing required for definitive results. Current Interpretive Data was last reviewed 2023. Cannabinoids, ur Screen Positive, presumptive (A) CutOff 50 ng/mL [facility] Comment: Interpretive Data - Cannabinoids: Samples containing greater than 50 ng/mL delta-9 THC -COOH or other cross- reacting compounds are reported as positive. False positive and false negative results are possible. Confirmatory testing required for definitive results. Current Interpretive Data was last reviewed 2023. Cocaine, ur Not Detected CutOff 150ng/mL [facility] Comment: Interpretive Data - Cocaine: Samples containing greater than 150 ng/mL benzoylecgonine or other cross- reacting compounds are reported as positive. False positive and false negative results are possible. Confirmatory testing required for definitive results. Current Interpretive Data was last reviewed 2023. Fentanyl, Ur Not Detected CutOff 5 ng/mL [facility] Comment: Interpretive Data - Fentanyl: Samples containing greater than 5 ng/mL norfentanyl, fentanyl, or other cross-reacting fentanyl compounds are reported as positive. False positive and false negative results are possible. Confirmatory testing required for definitive results. Current Interpretive Data was last reviewed 2023. Methadone, ur Not Detected CutOff 300ng/mL [facility] Comment: Interpretive Data - Methadone: Samples containing greater than 300 ng/mL d,l-methadone or other cross-reacting compounds are reported as positive. False positive and false negative results are possible. Confirmatory testing required for definitive results. Current Interpretive Data was last reviewed 2023. Opiates, ur Not Detected CutOff 300ng/mL [facility] Comment: Interpretive Data - Opiates: Samples containing greater than 300 ng/mL morphine or other cross-reacting compounds are reported as positive. False positive and false negative results are possible. Confirmatory testing required for definitive results. Current Interpretive Data was last reviewed 2023. Oxycodone, ur Not Detected CutOff 100ng/mL [facility] Comment: Interpretive Data - Oxycodone: Samples containing greater than 100 ng/mL oxycodone or other cross-reacting compounds are reported as positive. False positive and false negative results are possible. Confirmatory testing required for definitive results. Current Interpretive Data was last reviewed 2023. Phencyclidine, ur Not Detected CutOff 25 ng/mL [facility] Comment: Interpretive Data - Phencyclidine: Samples containing greater than 25 ng/mL phencyclidine or other cross-reacting compounds are reported as positive. False positive and false negative results are possible. Confirmatory testing required for definitive results. Current Interpretive Data was last reviewed 2023. Urine Creatinine 28 mg/dL [facility] Comment: Interpretive Data Urine Creatinine: < 10 mg/dL is extremely dilute = or > 10 but < 20 mg/dL is dilute = or > 20 mg/dL is normal Current Interpretive Data was last revised on 2017. Urine 11/11/2024 5:02 AM CDT 11/11/2024 5:21 AM CDT [facility]ative [facility] [facility] [facility] - 11/11/2024 5:49 AM CDT Drug of Abuse screening is performed by immunoassay for medical purposes only. This is not to be used for Pain Management purposes. Manolo Allen MD LAB URINE ORDERABLES Fi nal Result [facility] [address] [place] [address] * eGFR (11/11/2024 4:38 AM CDT) eGFR >90 >=60 mL/min/1. 73 m2 Comment: Interpretive Data Reference Interval Normal >/= 90 mL/min/1.73m2 Mildly decreased* 60 - 89 mL/min/1.73m2 Mildly to moderately decreased 45 - 59 mL/min/1.73m2 Moderately to severely decreased 30 - 44 mL/min/1.73m2 Severely decreased 15 - 29 mL/min/1.73m2 Kidney Failure < 15 mL/min/1.73m2 *Relative to young adult level Estimated glomerular filtration rate is determined by the 2020 CKD-EPI equation recommended by the National Kidney Foundation (A Unifying Approach to GFR Estimation: Recommendations of the NKF-ASK Task Force on Reassessing the Inclusion of Race in Diagnosing Kidney Disease, JASN 2020). The CKD-EPI equation should not be used for patients with unstable renal function and has not been validated in children and those over 70. Current interpretive data was last reviewed 2021. Blood 11/11/2024 4:38 AM CDT 11/11/2024 4:47 AM CDT Andrew Bernstein DO LAB BLOOD ORDERABLES Final Result [facility] [address] Department [place] [address] * Differential, auto (11/11/2024 4:38 AM CDT) Neutrophil abs 3.14 1.50 - 6.50 K/cumm Imm gran abs 0.03 0.00 - 0.10 K/cumm [facility] Lymphocyte abs 1.64 0.80 - 3.30 K/cumm [facility] Monocyte abs 0.49 0.20 - 0.80 K/cumm [facility] Eosinophil abs 0.07 0.00 - 0.50 K/cumm [facility] Basophil abs 0.05 0.00 - 0.10 K/cumm [facility] Neutrophil pct 57.9 % [facility] Comment: Interpretive Data Percent cell count reference ranges are not reported, since discordance with absolute values may lead to misinterpretation of CBC data. Current Interpretive Data was last revised on 2017. Imm gran pct 0.6 % [facility] Comment: Interpretive Data Percent cell count reference ranges are not reported, since discordance with absolute values may lead to misinterpretation of CBC data. Current Interpretive Data was last revised on 2017. Lymphocyte pct 30.3 % [facility] Comment: Interpretive Data Percent cell count reference ranges are not reported, since discordance with absolute values may lead to misinterpretation of CBC data. Current Interpretive Data was last revised on 2017. Monocyte pct 9.0 % [facility] Comment: Interpretive Data Percent cell count reference ranges are not reported, since discordance with absolute values may lead to misinterpretation of CBC data. Current Interpretive Data was last revised on 2017. Eosinophil pct 1.3 % [facility] Comment: Interpretive Data Percent cell count reference ranges are not reported, since discordance with absolute values may lead to misinterpretation of CBC data. Current Interpretive Data was last revised on 2017. Basophil pct 0.9 % [facility] Comment: Interpretive Data Percent cell count reference ranges are not reported, since discordance with absolute values may lead to misinterpretation of CBC data. Current Interpretive Data was last revised on 2017. Blood 11/11/2024 4:38 AM CDT 11/11/2024 4:47 AM CDT us Manolo Allen MD LAB BLOOD ORDERABLES Fi nal Result [facility] [address] [place] [address] * (ABNORMAL) CBC with auto differential (11/11/2024 4:38 AM CDT) WBC 5.42 3.80 - 9.90 K/cumm Hgb 12.6(L) 13.0 - 17.5 g/dL [facility] Hct 36.1(L) 38.9 - 50.3 % [facility] Plt 295 150 - 400 K/cumm [facility] MPV 9.8 9.1 - 12.3 fL [facility] RBC 4.17(L) 4.30 - 5.80 M/cumm [facility] MCV 86.6 81.3 - 96.4 fL [facility] MCH 30.2 27.1 - 33.3 pg [facility] MCHC 34.9 32.3 - 35.7 g/dL [facility] RDW CV 12.1 11.1 - 14.9 % [facility] RDW SD 38.8 35.7 - 48.1 fL [facility] NRBC abs 0.00 0.00 - 0.01 K/cumm [facility] Blood 11/11/2024 4:38 AM CDT 11/11/2024 4:47 AM CDT Manolo Allen MD LAB BLOOD ORDERABLES Fi nal Result Performing Organization Address City/[facility]/ZIP Co de Phone Number [facility] [employer] [address] [facility] [place] [address] * Ethanol (11/11/2024 4:38 AM CDT) Ethanol <10 <=10 mg/dL Comment: Interpretive Data Legal limit of intoxication > or = 80 mg/dL Levels > or = 400 mg/dL are potentially TOXIC. Current interpretive data was last revised on 2018. Blood 11/11/2024 4:38 AM CDT 11/11/2024 4:47 AM CDT Manolo Allen MD LAB BLOOD ORDERABLES Fi nal Result Performing Organization Address [facility] Co de Phone Number [facility] [employer] [address] [facility] [employer] [place], [place] [phone] * Acetaminophen level (11/11/2024 4:38 AM CDT) Acetaminophen <5 <=5 mcg/mL Comment: Interpretive Data Significant hepatic injury may occur and treatment with n-acetyl cysteine is generally recommended if the acetaminophen level exceeds: 150 mcg/mL at 4 hours after ingestion 75 mcg/mL at 8 hours after ingestion 38 mcg/mL at 12 hours after ingestion 19 mcg/mL at 16 hours after ingestion Consult toxicology or poison control ([phone]) for unknown ingestion time. Current interpretive data was last revised 2023. Blood 11/11/2024 4:38 AM CDT 11/11/2024 4:47 AM CDT Manolo Allen MD LAB BLOOD ORDERABLES Fi nal Result Performing Organization Address [facility] Co de Phone Number SH[facility] [employer] [address] [facility] [place], [place] [phone] * Salicylate level (11/11/2024 4:38 AM CDT) [facility] Salicylate <9.0 <=9.0 mg/dL Comment: Interpretive Data Toxic: 30 mg/dL or greater. Current interpretive data was last revised 2023. Blood 11/11/2024 4:38 AM CDT 11/11/2024 4:47 AM CDT Manolo Allen MD LAB BLOOD ORDERABLES Fi nal Result Performing Organization Address [facility] Co de Phone Number [facility] [address] Department [place] [address] * Hepatic function panel (11/11/2024 4:38 AM CDT) [facility] Bilirubin, total 0.4 0.1 - 1.2 mg/dL Bilirubin, direct <0.2 0.1 - 0.3 mg/dL [facility] Protein, pl 6.7 6.5 - 8.5 g/dL [facility] Albumin 4.1 3.5 - 5.0 g/dL [facility] Alk phos 67 40 - 130 Units/L [facility] ALT 23 7 - 55 Units/L [facility] AST 26 10 - 50 Units/L [facility] Blood 11/11/2024 4:38 AM CDT 11/11/2024 4:47 AM CDT Manolo Allen MD LAB BLOOD ORDERABLES Fi nal Result Performing Organization Address [facility] Co de Phone Number [facility] [address] [place] [address] * (ABNORMAL) Basic metabolic panel (11/11/2024 4:38 AM CDT) [facility] Sodium 141 135 - 145 mmol/L Potassium, pl 3.7 3.3 - 4.9 mmol/L [facility] Chloride 104 97 - 110 mmol/L [facility] CO2 23 22 - 32 mmol/L [facility] Anion gap 14 2 - 15 mmol/L [facility] BUN 9 6 - 25 mg/dL [facility] Creatinine 0.75(L) 0.80 - 1.30 mg/dL [facility] Glucose 101 70 - 199 mg/dL [facility] Comment: Interpretive Data Fasting glucose >/= 126 mg/dl is diagnostic for diabetes. Fasting is defined as no caloric intake for at least 8 hours. Fasting glucose between 100 mg/dl to 125 mg/dl is diagnostic of prediabetes. In a patient with classic symptoms of hyperglycemia or hyperglycemic crisis, a random glucose >/= 200 mg/dl is diagnostic for diabetes. In the absence of unequivocal hyperglycemia, results should be confirmed by repeat testing. The classification and Diagnosis of Diabetes Diabetes Care 2021; 46: S19-S40. Current interpretive data was last revised 2022. Calcium 9.1 8.5 - 10.3 mg/dL [facility] Blood 11/11/2024 4:38 AM CDT 11/11/2024 4:47 AM CDT Andrew Bernstein DO LAB BLOOD ORDERABLES Final Result [facility] [address] [place] [address] from Last 3 Months Insurance [facility] Advance Directives For more information, please contact: [phone] * Full Code (Latest Code Status on File) Date Activated Date Inactivated Comments 11/20/2024 12:58 PM 11/22/2024 8:05 PM Care Teams Automatic Chief Relationship Specialty Start Date End Date Chelsea Mccormick MD PCP - General Family Medicine 07/29/19 Soco Weeks MD [id number] [place] [address] Resident Psychiatry 11/25/24 02/04/25
--- OUTSIDE RECORDS SUMMARY | 2024-12-03 19:50 | XMS_ITS | Encounter Summary ---
Author Organization [facility] Address [address] [place] [address] Phone Care Team Providers Care Roller Skate Assembler Name Role Phone Edwardo Mccormick MD Primary Care Provider + [phone] Soco Weeks MD Unavailable [phone] Encounter Details Date Type Department Care Team (Late st Contact Info) Description 11/08/2024 Telephone [facility] Pain Management [address] [place] [id number] Leon Byrd, PhD [address] [place], [place] [phone] Social History Tobacco Use Types Packs/Day Years Used Date Smoking Tobacco: Former Smokeless Tobacco: Never Alcohol Use Standard Drinks/Week Comments Yes 0 (1 standard drink = 0.6 oz pur e alcohol) Personal Safety Answer Date Recorded Have you ever been in or are you currently in a harmful physical or emotional relationship or is someone making you feel afraid or unsafe? 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
--- OUTSIDE RECORDS SUMMARY | 2024-12-03 19:50 | XMS_ITS | Patient Health Record ---
Author Organization [facility] Address [address] [place] [address] Care Team Providers Care Cable Layer Name Role Phone Gilda Rivers Primary Care Provider Allergies No Known Allergies Results Component Value Reference Range Notes QuantiFERON-TB Gold Plus ([id number]) Reviewed date:09/12/2024 03:24:18 PM Interpretation:Negative Performing [facility] [address] [facility], Phone - [phone], [facility] Notes/Report: QuantiFERON Incubation Incubation performed. QuantiFERON-TB Gold Plus Negative Negative No response to M tuberculosis antigens detected. Infection with M tuberculosis is unlikely, but high risk individuals should be considered for additional testing (ATS/IDSA/CDC Clinical Practice Guidelines, 2017). The reference range is an Antigen minus Nil result of <0.35 IU/mL. Chemiluminescence immunoassay methodology QuantiFERON Criteria QuantiFERON-TB Gold Plus is a qualitative indirect test for M tuberculosis infection (including disease) and is intended for use in conjunction with risk assessment, radiography, and other medical and diagnostic evaluations. The QuantiFERON-TB Gold Plus result is determined by subtracting the Nil value from either TB antigen (Ag) value. The Mitogen tube serves as a control for the test. QuantiFERON TB1 Ag Value 0.01 QuantiFERON TB2 Ag Value 0.01 QuantiFERON Nil Value 0.01 QuantiFERON Mitogen Value >10.00 Reason For Referral No Information Social History Tobacco Use: Social History Observation Description Date Details (start date - stop date) Never Smoker NA - NA Sex Assigned At : Social History Observation Description Sex Assigned At Male Tobacco Control (Standard) Question Answer Notes Tobacco use: Nonsmoker Vital Signs Heart Rate 91 /min 09/09/2024 Respiratory Rate 16 /min 09/09/2024 Oximetry 98 % 09/09/2024 Blood pressure diastolic 68 mm Hg 09/09/2024 Height 72 in 09/09/2024 Blood pressure systolic 118 mm Hg 09/09/2024 Weight 197 lbs 09/09/2024 BMI 26.72 kg/m2 09/09/2024 Encounters Encounter Location Date Provider Diagnosis [place] [address] [place] [address] 09/09/2024 Gilda Rivers Adult general medical exam Z00.00 and Nutritional counseling Z71.3 Assessments Encounter Date Diagnosis (ICD Code) Assessment Notes Treatment Notes Treatment Clinical Notes Section Notes 09/09/2024 Adult general medical exam (ICD-10 - Z00.00) 09/09/2024 Nutritional counseling (ICD-10 - Z71.3) 09/09/2024 Other Continue treatment as recommended by [facility] staff. Encouraged patient to obtain routine medical care with patient's own primary care provider or establish as a patient at [facility] if no current primary care provider. Plan Of Treatment No Information Insurance Providers Payer Name Payer Address Payer Phone Subscriber Number Group Number Insured Name Patient Relationship to Insured Coverage Start Date Coverage End Date [facility] [address] [place] [address] [id number] Edwardo Fischer Self - patient is the insured 5 Medical (General) History Medical History History ICD Code complex regional pain syndrome Surgical History Surgery Date(Month/Year) nerve surgery 2012 Hospitalization History Reason Date(Month/Year) [facility]
--- OUTSIDE RECORDS SUMMARY | 2024-12-03 19:51 | XMS_ITS | Clinical Summary ---
Author Organization [facility] Address [address] [place] [address] Care Team Providers Care Test Fixture Designer Name Role Phone Chelsea Mccormick MD Primary Care Provider [phone] Soco Weeks MD Unavailable [phone] Allergies No known active allergies Medications traZODone (DESYREL) 50 mg tabletIndicatio ns:insomnia associated with depression Take 1 tablet (50 mg total) by mouth nightly as needed for sleep 30 tablet 1 5 01/22/20 Active melatonin 5 mg tablet Take 1 tablet (5 mg total) by mouth nightly as needed (sleep) 11/23/19 Discontinu ed(Stop Taking at Discharge) nicotine polacrilex (NICORETTE) 2 mg gum Chew 1 each (2 mg total) as needed for smoking cessation 11/23/19 Discontinu ed(Stop Taking at Discharge) acetaminophen (TYLENOL) 325 mg tablet Take 2 tablets (650 mg total) by mouth every 6 (six) hours as needed for pain (leg pain) 11/23/19 Discontinu ed(Stop Taking at Discharge) Active Problems [...] of ankle 05/18/2012 Pain in extremity 01/16/2012 Encounters Date Type Department Care Team Description 11/25/2024 12:30 PM CDT Office Visit [facility] [address] [place] [address] Soco Weeks MD Adjustment disorders, with depressed mood (Primary Dx); Narcissistic personality disorder (HCC) 11/24/2024 1:00 PM CDT Office Visit [facility] Pain Management [address] [place] [id number] Leon Byrd, PhD Adjustment disorder with mixed anxiety and depressed mood (Primary Dx); Other chronic pain 11/20/2024 12:08 PM CDT - 11/22/2024 3:46 PM CDT Hospital Encounter [facility] [address] [place] [id number] Jethro Pena MD Trillo Alvarez, Ludwig, MD Adjustment disorders, with depressed mood (Primary Dx); Cannabis use disorder, mild; Chronic pain syndrome; Normocytic anemia Discharge Disposition: Discharge to home or self care 11/19/2024 3:13 PM CDT - 11/20/2024 12:02 PM CDT Emergency [facility] Emergency Department [address] [place] [id number] Anxiety (Primary Dx); Depression, unspecified depression type Discharge Disposition: Discharge to psych hospital or psych unit 11/17/2024 9:00 AM CDT Office Visit [facility] Pain Management [address] [place] [address] Leon Byrd, PhD Adjustment disorder with mixed anxiety and depressed mood (Primary Dx); Other chronic pain 11/11/2024 4:08 AM CDT - 11/11/2024 8:15 AM CDT Emergency [facility] Emergency Department [address] [place] [address] Manolo Allen MD Beirne, Gregory J., Mental health problem (Primary Dx); Depression, unspecified depression type Discharge Disposition: Discharge to home or self care 11/10/2024 9:00 AM CDT Office Visit [facility] [address] [place] [phone] Leon Byrd, PhD Adjustment disorder with mixed anxiety and depressed mood (Primary Dx); Other chronic pain 11/08/2024 Telephone [facility] [address] [place] [address] Leon Byrd, PhD Mental Health Crisis (November called this morning concerned for Chelsea. She stated he is closing himself off from everyone. Her and their daughter recently left the house to stay with family b/c of how bad things have gotten. Chelsea has gotten rid of his phone and she is not able to contact ct. He has also started giving away other [...] numbers to multiple facilities to get assistance: [facility] [phone], [address] [facility] [place], [address]; [facility] [phone], [address], [phone], and Mental health crisis line [phone]. November says she will call back if anything changes. Chelsea currently sees Dr. Leon Byrd for psychology.) 11/08/2024 Telephone [facility] [address] [place] [address] Leon Byrd, PhD 10/27/2024 9:00 AM CDT Office Visit [facility] [address] [place] [address] Leon Byrd, PhD Adjustment disorder with mixed anxiety and depressed mood (Primary Dx); Other chronic pain 10/27/2024 Telephone [facility] [employer] [address] [place] [phone] Nisha Shabazz, ECHOCARDIOGRAPHY RADIOLOGY TECHNOLOGIST 10/13/2024 9:00 AM CUSTOMER SERVICE DRIVER Office Visit [facility] [address] [place] [address] Leon Byrd, PhD Other chronic pain (Primary Dx); Adjustment disorder with mixed anxiety and depressed mood 10/06/2024 9:00 AM CUSTOMER SERVICE DRIVER Office Visit [facility] [address] [place] [address] Leon Byrd, PhD Other chronic pain (Primary Dx); Adjustment disorder with mixed anxiety and depressed mood from Last 3 Months Immunizations Immunization Administration Dates Next Due Hep A / Hep B 01/18/2008 Tetanus toxoid, adsorbed 01/18/2008 Surgical History Surgery Date Site/Laterality Comments DECOMPRESSION FASCIOTOMY LEG Leg Decompression Fasciotomy - Decompression of right superficial peroneal nerve and medial and lateral muscle fasciotomy January 27 2013 (Added by TW Conv) PILONIDAL CYST RESECTION Pilonidal Cyst Resection - (Added by TW Conv) Medical History Medical History Date Comments Asthma Neuropathy Reflex sympathetic dystrophy Chronic pain syndrome Family History Medical History Relation Name Comments Hypertension Father Family history of hypertension - (Added by TW Conv) Relation Name Status Comments Father Social History Tobacco Use Types Packs/Day Years Used Date Smoking Tobacco: Former Smokeless Tobacco: Never Alcohol Use Standard Drinks/Week Comments Yes 0 (1 standard drink = 0.6 oz pur e alcohol) [facility] Utilities Answer Date Recorded In the past 12 months has [employer], gas, oil, or water [employer] threatened to shut off services in your [...] How often do you attend chur or temple services? Never 11/20/2024 Do you belong to any clubs o r organizations such as orthodox groups, unions, fraternal or athletic groups, or [...] any time in the past 12 [facility], were you homeless or living in a group home (including now)? No 11/20/2024 Personal Safety Answer Date Recorded Have you ever been in or are you currently in a harmful physical or emotional relationship or is someone making you feel afraid or unsafe? Denies 11/20/2024 Sex and Gender Information Value Date Recorded Sex Assigned at Not on file Legal Sex Male 7:21 AM CUSTOMER SERVICE DRIVER Gender Identity Not on file Sexual Orientation Not on file Obstetrics History Last Filed Vital Signs Vital Sign Reading [...] Mass Index 26.45 11/25/2024 12:13 PM CDT Plan of Treatment Health Maintenance Due Date Last Done Comments Colon Cancer Screening-Colonoscopy 1975 Regular Well Visit/Exam 18-64 1993 DTaP/Tdap/Td Vaccine (1 - Tdap) 01/19/2008 01/18/2008 Influenza Vaccine (Season Ended) 2025 03/24/2018 Depression Screening 11/20/2025 11/20/2024, 11/20/2024 Hepatitis B Screening Completed 11/22/2024 , 01/18/2008 Hepatitis C Screening Completed 11/22/2024 Pneumococcal vaccine <65 Aged Out No longer eligible based on patient's age to complete this topic Procedures Procedure Name Priority Date/Time Associated Diagnosis [...] :38 AM CDT SALICYLATE LEVEL STAT 11/11/2024 4:38 AM CDT HEPATIC FUNCTION PANEL STAT 4:38 AM CDT ETHANOL STAT 11/11/2024 4:38 AM CDT CBC WITH AUTO DIFFERENTIAL STAT 11/11/2024 4:38 AM CDT from Last 3 Months Results * Iron profile w/ IBC (11/22/2024 5:22 AM CDT) Pathologist [facility] Iron 95 50 - 150 mcg/dL TIBC 299 250 - 400 mcg/dL [facility] Transferrin saturation 32 20 - 50 % [facility] Blood 11/22/2024 5:22 AM CDT 11/22/2024 9:34 AM CDT Result [facility] Earl Dos Santos MD LAB BLOOD ORDERABLES Final Result [facility] [place] [address] * HIV 1/2 Antibody plus p24 Antigen Blood (11/22/2024 5:22 AM CDT) Pathologist [facility] HIV 1/2 ab + p24 ag Nonreactive Nonreactive Comment:Nonreactive for HIV- 1 antigen and HIV-1/HIV-2 antibodies. No laboratory evidence of HIV infection. If acute HIV infection is suspected, consider testing for HIV-1 RNA. Current interpretive data was last revised on 22. Blood 11/22/2024 5:22 AM CDT 11/22/2024 9:34 AM CDT Earl Dos Santos MD LAB MICROBIOLOGY - G ENERAL ORDERABLES Final Result [facility] [place] [address] * Hepatitis C antibody Blood (11/22/2024 5:22 AM CDT) Hep C Ab Nonreactive Nonreactive Comment:Antibodies to HCV no t detected. Does NOT exclude the possibility of recent exposure to HCV. Current interpretive data was last revised on 22 Blood 11/22/2024 5:22 AM CDT 11/22/2024 9:34 AM CDT Earl Dos Santos MD LAB MICROBIOLOGY - G ENERAL ORDERABLES Final Result [facility] [place] [address] * Hepatitis B core antibody, total Blood (11/22/2024 5:22 AM CDT) Pathologist [facility] Hep B core IgG/IgM Nonreactive Nonreactive Blood 11/22/2024 5:22 AM CDT 11/22/2024 9:34 AM CDT Earl Dos Santos MD LAB MICROBIOLOGY - G ENERAL ORDERABLES Final Result [facility] [place] [address] * Hepatitis B surface antibody (immune status) Blood (11/22/2024 5:22 AM CDT) Pathologist [facility] HBsAb (immune status) Nonreactive Comment:This result is consi stent with a lack of immunity to Hepatitis B Virus when used in the setting of routine screening. Current interpretative data was last revised on 22 Blood 11/22/2024 5:22 AM CDT 11/22/2024 9:34 AM CDT Earl Dos Santos MD LAB MICROBIOLOGY - G ENERAL ORDERABLES Final Result Performing Organization Address City/State/[facility] Co de Phone Number [facility] [place] [address] * Hepatitis B Surface Antigen Blood (11/22/2024 5:22 AM CDT) Pathologist [facility] HepBsAg Nonreactive Nonreactive Blood 11/22/2024 5:22 AM CDT 11/22/2024 9:34 AM CDT Earl Dos Santos MD LAB MICROBIOLOGY - G ENERAL ORDERABLES Final Result Performing Organization Address [facility] de Phone Number [facility] [place] [address] * (ABNORMAL) Reticulocyte Count (11/22/2024 5:22 AM CDT) [facility] Retics, absolute 106(H) 20 - 87 K/cumm Retics 2.5 0.4 - 2.9 % [facility] Reticulocyte Hgb 34.3 30.5 - 38.0 pg [facility] Blood 11/22/2024 5:22 AM CDT 11/22/2024 9:34 AM CDT Earl Dos Santos MD LAB BLOOD ORDERABLES Final Result Performing Organization Address [facility] [address]/[facility] de Phone Number [facility] Department [place] [address] * Hemoglobin A1c (11/22/2024 5:22 AM CDT) [facility] Hgb A1C 5.4 4.0 - 5.6 % Estimated Average Glucose 108 mg/dL [facility] Comment: The ADA recommends reporting an estimated Average Glucose (eAG) with all Hemoglobin A1c results using the equation derived from a study of 507 normal and diabetic adults. Minority populations were underrepresented and children were not included. (Diabetes Care 2020; 43(S1): S66-S76). The eAG is not equivalent to a fasting glucose. Blood 11/22/2024 5:22 AM CDT 11/22/2024 9:34 AM CDT us Earl Dos Santos MD LAB BLOOD ORDERABLES Final Result Performing Organization Address [facility] [address]/[facility] de Phone Number [facility] [place] [address] * Folate (11/22/2024 5:22 AM CDT) Pathologist [facility] Folic acid >20.0 >=5.0 ng/mL Blood 11/22/2024 5:22 AM CDT 11/22/2024 9:34 AM CDT Earl Dos Santos MD LAB BLOOD ORDERABLES Final Result Performing Organization Address [facility] de Phone Number [facility] Department [place] [address] * Ferritin (11/22/2024 5:22 AM CDT) Pathologist [facility] Ferritin 197 30 - 400 ng/mL Blood 11/22/2024 5:22 AM CDT 11/22/2024 9:34 AM CDT Earl Dos Santos MD LAB BLOOD ORDERABLES Final Result Performing Organization Address [facility] [address] [facility] [place] [address] * Vitamin B12 (11/22/2024 5:22 AM CDT) Pathologist [facility] Vitamin B12 317 230 - 1,250 pg/mL Blood 11/22/2024 5:22 AM CDT 11/22/2024 9:34 AM CDT Earl Dos Santos MD LAB BLOOD ORDERABLES Final Result Performing Organization Address City/[facility] [address]/ZIP Co de Phone Number [facility] Department [place] [address] * COVID-19 Coronavirus RNA Nasopharyngeal (11/20/2024 5:30 AM CDT) COVID-19 RNA Negative Negative Nasopharyngeal 11/20/2024 5: 30 AM CDT 11/20/2024 5:44 AM CDT [facility] - 11/20/2024 6:18 AM CDT Is the patient experiencing any symptoms consistent with COVID (eg. Fever, cough, shortness of breath)?->No What is the reason for testing?->Screening prior to Behavioral health admission Interpretive data Testing performed by [facility]. This test is performed using the [employer] Xpert Xpress CoV-2 plus assay. This is a real-time RT-PCR test intended for the qualitative detection of nucleic acid from the SARS-CoV-2. This assay has been cleared by the [place] Food and Drug administration. The performance characteristics have been verified by the [facility]. Results must be considered in the clinical context, and a negative result does not rule out infection. Interpretive data last revised 2024. Interpretive data Testing performed by [facility]. This test is performed using the [employer] Xpert Xpress CoV-2 plus assay. This is a real-time RT-PCR test intended for the qualitative detection of nucleic acid from the SARS-CoV-2. This assay has been cleared by the [place] Food and Drug administration. The performance characteristics have been verified by the [facility]. Results must be considered in the clinical context, and a negative result does not rule out infection. Interpretive data last revised 2024. Latasha Mann NP LAB MICROBIOLOGY - GENERAL ORDERABLES Final Result [facility] [address] Department [place] [address] * Urinalysis reflex to microscopic and culture Urine (11/19/2024 4:39 PM CDT) Color, ur Straw Yellow Clarity, ur Clear Clear [facility] Specific gravity, ur 1.005 1.003 - 1.030 [facility] pH, urine 6.5 [facility] Comment: Interpretive Data U rine pH is affected by diet, medications, systemic acid-base disturbances, and renal tubular function. pH may affect urinary stone formation. For example, urine pH below 6.0 may help reduce the tendency for calcium phosphate stones and pH greater than 6.0 may reduce the tendency for uric acid stone formation. Source: [facility] Current Interpretive Data was last revised on 2017 Protein, ur ql Negative Negative [facility] Glucose, ur ql Negative Negative [facility] Ketones, ur Negative Negative [facility] Bilirubin, ur Negative Negative [facility] Blood, ur Negative Negative [facility] Urobilinogen, ur <2.0 <2.0 mg/dL [facility] Nitrite, ur Negative Negative [facility] Leukocyte esterase, ur Negative Negative [facility] UA reflex comment Reflex conditions for microscopic UA and culture not met. [facility] Urine 11/19/2024 4:39 PM CDT 11/19/2024 4:39 PM CDT Venessa [facility]ON LAB MICROBIOLOGY - [facility] AL ORDERABLES Final Result [facility] [address] Department [place] [address] * (ABNORMAL) Drugs of Abuse Screen, Urine without Confirmation (11/19/2024 4:39 PM CDT) Pathologist [facility] Amphetamine, ur Not Detected CutOff 500ng/mL Comment: Interpretive Data - Amphetamines: Samples containing greater than 500 ng/mL d-methamphetamine or other cross-reacting amphetamine compounds are reported as positive. Amphetamine immunoassays are subject to significant false positive rates due to cross-reactivity of non-amphetamine drugs. Confirmatory testing required for definitive results. Current Interpretive Data was last reviewed 2023. Barbiturates, ur Not Detected CutOff 200ng/mL [facility] Comment: Interpretive Data - Barbiturates: Samples containing greater than 200 ng/mL secobarbital or other cross-reacting barbiturate compounds are reported as positive. False positive and false negative results are possible. Confirmatory testing required for definitive results. Current Interpretive Data was last reviewed 2023. Benzodiazepines, ur Not Detected CutOff 100ng/mL [facility] Comment: Interpretive Data - Benzodiazepines: Samples containing greater than 100 ng/mL nordiazepam or other cross-reacting compounds are reported as positive. False positive and false negative results are possible. Confirmatory testing required for definitive results. Current Interpretive Data was last reviewed 2023. Cannabinoids, ur Screen Positive, presumptive (A) CutOff 50 ng/mL [facility] Comment: Interpretive Data - Cannabinoids: Samples containing greater than 50 ng/mL delta-9 THC -COOH or other cross- reacting compounds are reported as positive. False positive and false negative results are possible. Confirmatory testing required for definitive results. Current Interpretive Data was last reviewed 2023. Cocaine, ur Not Detected CutOff 150ng/mL [facility] Comment: Interpretive Data - Cocaine: Samples containing greater than 150 ng/mL benzoylecgonine or other cross- reacting compounds are reported as positive. False positive and false negative results are possible. Confirmatory testing required for definitive results. Current Interpretive Data was last reviewed 2023. Fentanyl, Ur Not Detected CutOff 5 ng/mL [facility] Comment: Interpretive Data - Fentanyl: Samples containing greater than 5 ng/mL norfentanyl, fentanyl, or other cross-reacting fentanyl compounds are reported as positive. False positive and false negative results are possible. Confirmatory testing required for definitive results. Current Interpretive Data was last reviewed 2023. Methadone, ur Not Detected CutOff 300ng/mL [facility] Comment: Interpretive Data - Methadone: Samples containing greater than 300 ng/mL d,l-methadone or other cross-reacting compounds are reported as positive. False positive and false negative results are possible. Confirmatory testing required for definitive results. Current Interpretive Data was last reviewed 2023. Opiates, ur Not Detected CutOff 300ng/mL [facility] Comment: Interpretive Data - Opiates: Samples containing greater than 300 ng/mL morphine or other cross-reacting compounds are reported as positive. False positive and false negative results are possible. Confirmatory testing required for definitive results. Current Interpretive Data was last reviewed 2023. Oxycodone, ur Not Detected CutOff 100ng/mL [facility] Comment: Interpretive Data - Oxycodone: Samples containing greater than 100 ng/mL oxycodone or other cross-reacting compounds are reported as positive. False positive and false negative results are possible. Confirmatory testing required for definitive results. Current Interpretive Data was last reviewed 2023. Phencyclidine, ur Not Detected CutOff 25 ng/mL [facility] Comment: Interpretive Data - Phencyclidine: Samples containing greater than 25 ng/mL phencyclidine or other cross-reacting compounds are reported as positive. False positive and false negative results are possible. Confirmatory testing required for definitive results. Current Interpretive Data was last reviewed 2023. Urine Creatinine 40 mg/dL [facility] Comment: Interpretive Data Urine Creatinine: < 10 mg/dL is extremely dilute = or > 10 but < 20 mg/dL is dilute = or > 20 mg/dL is normal Current Interpretive Data was last revised on 2017. Urine 11/19/2024 4:39 PM CDT 11/19/2024 4:58 PM CDT Narrative [facility] - 11/19/2024 5:28 PM CDT Drug of Abuse screening is performed by immunoassay for medical purposes only. This is not to be used for Pain Management purposes. Venessa [facility] LAB URINE ORDERABLES [facility] al Result [facility] [address] Department [place] [address] * eGFR (11/19/2024 4:01 PM CDT) eGFR [...] [facility] LAB BLOOD ORDERABLES Fin al Result [facility] [address] Department [place] [address] * Differential, auto (11/19/2024 4:01 PM CDT) Neutrophil abs 3.37 1.50 - 6.50 K/cumm Imm gran abs 0.02 0.00 - 0.10 K/cumm [facility] Lymphocyte abs 1.74 0.80 - 3.30 K/cumm [facility] Monocyte abs 0.43 0.20 - 0.80 K/cumm [facility] Eosinophil abs 0.05 0.00 - 0.50 K/cumm [facility] Basophil abs 0.04 0.00 - 0.10 K/cumm [facility] Neutrophil pct 59.6 % [facility] Comment: Interpretive Data Percent cell count reference ranges are not reported, since discordance with absolute values may lead to misinterpretation of CBC data. Current Interpretive Data was last revised on 2017. Imm gran pct 0.4 % [facility] Comment: Interpretive Data Percent cell count reference ranges are not reported, since discordance with absolute values may lead to misinterpretation of CBC data. Current Interpretive Data was last revised on 2017. Lymphocyte pct 30.8 % [facility] Comment: Interpretive Data Percent cell count reference ranges are not reported, since discordance with absolute values may lead to misinterpretation of CBC data. Current Interpretive Data was last revised on 2017. Monocyte pct 7.6 % [facility] Comment: Interpretive Data Percent cell count reference ranges are not reported, since discordance with absolute values may lead to misinterpretation of CBC data. Current Interpretive Data was last revised on 2017. Eosinophil pct 0.9 % [facility] Comment: Interpretive Data Percent cell count reference ranges are not reported, since discordance with absolute values may lead to misinterpretation of CBC data. Current Interpretive Data was last revised on 2017. Basophil pct 0.7 % [facility] Comment: Interpretive Data Percent cell count reference ranges are not reported, since discordance with absolute values may lead to misinterpretation of CBC data. Current Interpretive Data was last revised on 2017. Blood 11/19/2024 4:01 PM CDT 11/19/2024 4:11 PM CDT Venessa [facility] LAB BLOOD ORDERABLES Fin al Result Performing Organization Address City/[facility] [address]/ZIP Co de Phone Number [facility] [address] [facility] [place] [address] * Thyroid Function [place] (11/19/2024 4:01 PM CDT) TSH 0.42 0.30 - 4.20 mcIUnit/mL Blood 11/19/2024 4:01 PM CDT 11/19/2024 4:11 PM CDT Venessa HORTON LAB BLOOD ORDERABLES Fin al Result Performing Organization Address City/[facility] [address]/ZIP Co de Phone Number [facility] [address] Department of [place] [address] * (ABNORMAL) CBC with auto differential (11/19/2024 4:01 PM CDT) WBC 5.65 3.80 - 9.90 K/cumm Hgb 12.8(L) 13.0 - 17.5 g/dL [facility] Hct 36.8(L) 38.9 - 50.3 % [facility] Plt 335 150 - 400 K/cumm [facility] MPV 9.6 9.1 - 12.3 fL [facility] RBC 4.25(L) 4.30 - 5.80 M/cumm [facility] MCV 86.6 81.3 - 96.4 fL [facility] MCH 30.1 27.1 - 33.3 pg [facility] MCHC 34.8 32.3 - 35.7 g/dL [facility] RDW CV 12.2 11.1 - 14.9 % [facility] RDW SD 38.5 35.7 - 48.1 fL [facility] NRBC abs 0.00 0.00 - 0.01 K/cumm [facility] Blood 11/19/2024 4:01 PM CDT 11/19/2024 4:11 PM CDT Venessa HORTON LAB BLOOD ORDERABLES Fin al Result Performing Organization Address City/[facility] [address]/[facility] Co de Phone Number [facility] [address] [place] [address] * Ethanol (11/19/2024 4:01 PM CDT) [facility] Ethanol <10 <=10 mg/dL Comment: Interpretive Data Legal limit of intoxication > or = 80 mg/dL Levels > or = 400 mg/dL are potentially TOXIC. Current interpretive data was last revised on 2018. Blood 11/19/2024 4:01 PM CDT 11/19/2024 4:10 PM CDT Venessa HORTON LAB BLOOD ORDERABLES Fin al Result Performing Organization Address City/[facility] [address]/ZIP Co de Phone Number [facility] [address] [place] [address] * (ABNORMAL) Lipid panel (11/19/2024 4:01 PM [...] revised on 2018. Triglycerides 115 <=149 mg/dL [facility] Comment: Interpretive Data Ages < [...] revised on 2018. HDL 47 >=40 mg/dL [facility] Comment: Interpretive Data Ages < [...] on 2018. LDL, calculated 150(H) <=129 mg/dL [facility] Comment: Interpretive Data Ages < [...] NCEP Expert Panel. Circulation 2004;110:227 3. Bruce M et al. ADA Cardiol. 2020 December 09;5(5):540-548. doi: 10.1001/jamacardio.2020.0013 Current Interpretive Data was last revised on 2024. Non-HDL Cholesterol 171 mg/dL [facility] Comment: Interpretive Data Ages < [...] last revised on 2018. Chol/HDL ratio 5 [facility] Blood 11/19/2024 4:01 PM CDT 11/19/2024 4:11 PM CDT us Earl Dos Santos MD LAB BLOOD ORDERABLES Final Result [facility] [address] Department [place] [address] * (ABNORMAL) Basic metabolic panel (11/19/2024 4:01 PM CDT) Sodium 137 135 - 145 mmol/L Potassium, pl 4.2 3.3 - 4.9 mmol/L [facility] Chloride 99 97 - 110 mmol/L [facility] CO2 26 22 - 32 mmol/L [facility] Anion gap 12 2 - 15 mmol/L [facility] BUN 4(L) 6 - 25 mg/dL [facility] Creatinine 0.78(L) 0.80 - 1.30 mg/dL [facility] Glucose 117 70 - 199 mg/dL [facility] Comment: Interpretive Data Fasting glucose [...] 2022. Calcium 9.4 8.5 - 10.3 mg/dL [facility] Blood 11/19/2024 4:01 PM CDT 11/19/2024 4:11 PM CDT Venessa HORTON LAB BLOOD ORDERABLES Fin al Result [facility] [address] Department [place] [address] * Urinalysis reflex to microscopic and culture Urine (11/11/2024 5:02 AM CDT) Color, ur Straw Yellow Clarity, ur Clear Clear [facility] Specific gravity, ur 1.005 1.003 - 1.030 [facility] pH, urine 7.0 [facility] Comment: Interpretive Data U rine pH is affected by diet, medications, systemic acid-base disturbances, and renal tubular function. pH may affect urinary stone formation. For example, urine pH below 6.0 may help reduce the tendency for calcium phosphate stones and pH greater than 6.0 may reduce the tendency for uric acid stone formation. Source: [facility] Current Interpretive Data was last revised on 2017 Protein, ur ql Negative Negative [facility] Glucose, ur ql Negative Negative [facility] Ketones, ur Negative Negative [facility] Bilirubin, ur Negative Negative [facility] Blood, ur Negative Negative [facility] Urobilinogen, ur <2.0 <2.0 mg/dL [facility] Nitrite, ur Negative Negative [facility] Leukocyte esterase, ur Negative Negative [facility] UA reflex comment Reflex conditions for microscopic UA and culture not met. [facility] Urine 11/11/2024 5:02 AM CDT 11/11/2024 5:21 AM CDT us Manolo Allen MD LAB MICROBIOLOGY - [facility] ORDERABLES Final Result [facility] [address] Department [place] [address] * (ABNORMAL) Drugs of Abuse Screen, Urine [...] 2023. Barbiturates, ur Not Detected CutOff 200ng/mL [facility] Comment: Interpretive Data - Barbiturates: Samples containing greater than 200 ng/mL secobarbital or other cross-reacting barbiturate compounds are reported as positive. False positive and false negative results are possible. Confirmatory testing required for definitive results. Current Interpretive Data was last reviewed 2023. Benzodiazepines, ur Not Detected CutOff 100ng/mL [facility] Comment: Interpretive Data - Benzodiazepines: Samples containing greater than 100 ng/mL nordiazepam or other cross-reacting compounds are reported as positive. False positive and false negative results are possible. Confirmatory testing required for definitive results. Current Interpretive Data was last reviewed 2023. Cannabinoids, ur Screen Positive, presumptive (A) CutOff 50 ng/mL [facility] Comment: Interpretive Data - Cannabinoids: Samples containing greater than 50 ng/mL delta-9 THC -COOH or other cross- reacting compounds are reported as positive. False positive and false negative results are possible. Confirmatory testing required for definitive results. Current Interpretive Data was last reviewed 2023. Cocaine, ur Not Detected CutOff 150ng/mL [facility] Comment: Interpretive Data - Cocaine: Samples containing greater than 150 ng/mL benzoylecgonine or other cross- reacting compounds are reported as positive. False positive and false negative results are possible. Confirmatory testing required for definitive results. Current Interpretive Data was last reviewed 2023. Fentanyl, Ur Not Detected CutOff 5 ng/mL [facility] Comment: Interpretive Data - Fentanyl: Samples containing greater than 5 ng/mL norfentanyl, fentanyl, or other cross-reacting fentanyl compounds are reported as positive. False positive and false negative results are possible. Confirmatory testing required for definitive results. Current Interpretive Data was last reviewed 2023. Methadone, ur Not Detected CutOff 300ng/mL [facility] Comment: Interpretive Data - Methadone: Samples containing greater than 300 ng/mL d,l-methadone or other cross-reacting compounds are reported as positive. False positive and false negative results are possible. Confirmatory testing required for definitive results. Current Interpretive Data was last reviewed 2023. Opiates, ur Not Detected CutOff 300ng/mL [facility] Comment: Interpretive Data - Opiates: Samples containing greater than 300 ng/mL morphine or other cross-reacting compounds are reported as positive. False positive and false negative results are possible. Confirmatory testing required for definitive results. Current Interpretive Data was last reviewed 2023. Oxycodone, ur Not Detected CutOff 100ng/mL [facility] Comment: Interpretive Data - Oxycodone: Samples containing greater than 100 ng/mL oxycodone or other cross-reacting compounds are reported as positive. False positive and false negative results are possible. Confirmatory testing required for definitive results. Current Interpretive Data was last reviewed 2023. Phencyclidine, ur Not Detected CutOff 25 ng/mL [facility] Comment: Interpretive Data - Phencyclidine: Samples containing greater than 25 ng/mL phencyclidine or other cross-reacting compounds are reported as positive. False positive and false negative results are possible. Confirmatory testing required for definitive results. Current Interpretive Data was last reviewed 2023. Urine Creatinine 28 mg/dL [facility] Comment: Interpretive Data Urine Creatinine: < 10 mg/dL is extremely dilute = or > 10 but < 20 mg/dL is dilute = or > 20 mg/dL is normal Current Interpretive Data was last revised on 2017. Urine 11/11/2024 5:02 AM CDT 11/11/2024 5:21 AM CDT Narrative [facility] - 11/11/2024 5:49 AM CDT Drug of Abuse screening is performed by immunoassay for medical purposes only. This is not to be used for Pain Management purposes. Manolo Allen MD LAB URINE ORDERABLES nal Result [facility] [address] Department [place] [address] * eGFR (11/11/2024 4:38 AM CDT) eGFR [...] Bernstein DO LAB BLOOD ORDERABLES Final Result [facility] [address] Department [place] [address] * Differential, auto (11/11/2024 4:38 AM CDT) Neutrophil abs 3.14 1.50 - 6.50 K/cumm Imm gran abs 0.03 0.00 - 0.10 K/cumm [facility] Lymphocyte abs 1.64 0.80 - 3.30 K/cumm [facility] Monocyte abs 0.49 0.20 - 0.80 K/cumm [facility] Eosinophil abs 0.07 0.00 - 0.50 K/cumm [facility] Basophil abs 0.05 0.00 - 0.10 K/cumm [facility] Neutrophil pct 57.9 % [facility] Comment: Interpretive Data Percent cell count reference ranges are not reported, since discordance with absolute values may lead to misinterpretation of CBC data. Current Interpretive Data was last revised on 2017. Imm gran pct 0.6 % [facility] Comment: Interpretive Data Percent cell count reference ranges are not reported, since discordance with absolute values may lead to misinterpretation of CBC data. Current Interpretive Data was last revised on 2017. Lymphocyte pct 30.3 % [facility] Comment: Interpretive Data Percent cell count reference ranges are not reported, since discordance with absolute values may lead to misinterpretation of CBC data. Current Interpretive Data was last revised on 2017. Monocyte pct 9.0 % [facility] Comment: Interpretive Data Percent cell count reference ranges are not reported, since discordance with absolute values may lead to misinterpretation of CBC data. Current Interpretive Data was last revised on 2017. Eosinophil pct 1.3 % [facility] Comment: Interpretive Data Percent cell count reference ranges are not reported, since discordance with absolute values may lead to misinterpretation of CBC data. Current Interpretive Data was last revised on 2017. Basophil pct 0.9 % [facility] Comment: Interpretive Data Percent cell count reference ranges are not reported, since discordance with absolute values may lead to misinterpretation of CBC data. Current Interpretive Data was last revised on 2017. Blood 11/11/2024 4:38 AM CDT 11/11/2024 4:47 AM CDT Manolo Allen MD LAB BLOOD ORDERABLES Fi nal Result Performing Organization Address City/[facility] [address]/ZIP Co de Phone Number [facility] [address] Department [place] [address] * (ABNORMAL) CBC with auto differential (11/11/2024 4:38 AM CDT) WBC 5.42 3.80 - 9.90 K/cumm Hgb 12.6(L) 13.0 - 17.5 g/dL [facility] Hct 36.1(L) 38.9 - 50.3 % [facility] Plt 295 150 - 400 K/cumm [facility] MPV 9.8 9.1 - 12.3 fL [facility] RBC 4.17(L) 4.30 - 5.80 M/cumm [facility] MCV 86.6 81.3 - 96.4 fL [facility] MCH 30.2 27.1 - 33.3 pg [facility] MCHC 34.9 32.3 - 35.7 g/dL [facility] RDW CV 12.1 11.1 - 14.9 % [facility] RDW SD 38.8 35.7 - 48.1 fL [facility] NRBC abs 0.00 0.00 - 0.01 K/cumm [facility] Blood 11/11/2024 4:38 AM CDT 11/11/2024 4:47 AM CDT Manolo Allen MD LAB BLOOD ORDERABLES Fi nal Result Performing Organization Address City/[facility] [address]/ZIP Co de Phone Number [facility] [address] [facility] [place] [address] * Ethanol (11/11/2024 4:38 AM CDT) Ethanol <10 <=10 mg/dL Comment: Interpretive Data Legal limit of intoxication > or = 80 mg/dL Levels > or = 400 mg/dL are potentially TOXIC. Current interpretive data was last revised on 2018. Blood 11/11/2024 4:38 AM CDT 11/11/2024 4:47 AM CDT Manolo Allen MD LAB BLOOD ORDERABLES Fi nal Result Performing Organization Address [facility] [address]/[facility] Co de Phone Number [facility] [address] [facility] [place] [place] [address] * Acetaminophen level (11/11/2024 4:38 AM CDT) [...] after ingestion Consult toxicology or poison control ([phone]) for unknown ingestion time. Current interpretive data was last revised 2023. Blood 11/11/2024 4:38 AM CDT 11/11/2024 4:47 AM CDT Manolo Allen MD LAB BLOOD ORDERABLES Fi nal Result Performing Organization Address City/[facility] [address]/ZIP Co de Phone Number [facility] [address] [facility] [place] [place] [address] * Salicylate level (11/11/2024 4:38 AM CDT) Salicylate <9.0 <=9.0 mg/dL Comment: Interpretive Data Toxic: 30 mg/dL or greater. Current interpretive data was last revised 2023. Blood 11/11/2024 4:38 AM CDT 11/11/2024 4:47 AM CDT Manolo Allen MD LAB BLOOD ORDERABLES Fi nal Result Performing Organization Address City/[facility] [address]/[facility] Co de Phone Number [facility] [address] [place] [address] * Hepatic function panel (11/11/2024 4:38 AM CDT) Bilirubin, total 0.4 0.1 - 1.2 mg/dL Bilirubin, direct <0.2 0.1 - 0.3 mg/dL [facility] Protein, pl 6.7 6.5 - 8.5 g/dL [facility] Albumin 4.1 3.5 - 5.0 g/dL [facility] Alk phos 67 40 - 130 Units/L [facility] ALT 23 7 - 55 Units/L [facility] AST 26 10 - 50 Units/L [facility] Blood 11/11/2024 4:38 AM CDT 11/11/2024 4:47 AM CDT Manolo Allen MD LAB BLOOD ORDERABLES Fi nal Result Performing Organization Address [facility] [address]/[facility] Co de Phone Number [facility] [address] [place] [address] * (ABNORMAL) Basic metabolic panel (11/11/2024 4:38 AM CDT) Sodium 141 135 - 145 mmol/L Potassium, pl 3.7 3.3 - 4.9 mmol/L [facility] Chloride 104 97 - 110 mmol/L [facility] CO2 23 22 - 32 mmol/L [facility] Anion gap 14 2 - 15 mmol/L [facility] BUN 9 6 - 25 mg/dL [facility] Creatinine 0.75(L) 0.80 - 1.30 mg/dL [facility] Glucose 101 70 - 199 mg/dL [facility] Comment: Interpretive Data Fasting glucose [...] classification and Diagnosis of Diabetes Diabetes Care 202; 46: S19-S40. Current interpretive data was last revised 2022. Calcium 9.1 8.5 - 10.3 mg/dL [facility] Blood 11/11/2024 4:38 AM CDT 11/11/2024 4:47 AM CDT Andrew Bernstein DO LAB BLOOD ORDERABLES Final Result [facility] [address] Department [place] [address] from Last 3 Months Insurance [facility] HMO/PPO Address: [facility] [address] [place] [address] [facility] CHOICE PLUS [facility] HMO/PPO Address: [facility] [address] [place] [address] [facility] Advance Directives For more information, please contact: [phone] * Full Code (Latest Code Status on File) Date Activated Date Inactivated Comments 11/20/2024 12:58 PM 11/22/2024 8:05 PM Care Teams Test Fixture Designer Relationship Specialty Start Date End Date Chelsea Mccormick MD PCP - General Family Medicine 07/29/19 Soco Weeks MD [id number] [place] [address] Resident Psychiatry 11/25/24 02/04/25
--- NOTE | 2024-12-03 20:17 | ED_ITS ---
HPI - Psych General Chief Complaint: Psychiatric Symptoms Stated Complaint: psych Time Seen by Provider: 12/03/24 19:54 History of Present Illness HPI Narrative: 49-year-old male with a history of psychiatric illness presenting to the emergency department in police custody for trespassing and wandering through patient's yd and stealing things out of trash cans. Patient is very averse of and not making eye contact. He appears to be manic but also not making sense and his speech patterns. aoc director combat plans officer bedside knows him well and is able to communicate with him. He was seen at [facility] at the beginning of November and then once again the middle of November and sent to a psychiatric facility on the . Patient does not remember this and is not sure if he was hospitalized but does remember going to [facility]. Patient denies any complaints at this time and wants to go home. He is in custody and reportedly his family is filing for involuntary confinement. Related Data Home Medications ?Medication ?Instructions ?Recorded ?Confirmed ?Last Taken ?Type aripiprazole 20 mg tablet mg PO 09/16/24 09/16/24 Unknown History sertraline 50 mg tablet mg PO 09/16/24 09/16/24 Unknown History Allergies Allergy/AdvReac Type Severity Reaction Status Date / Time atorvastatin Allergy Unknown myalgias Verified 09/16/24 13:37 Review of Systems 2 Review of Systems: As reviewed above in HPI PMFSH Past Medical History Medical History Reflex sympathetic dystrophy, unspecified Pilonidal fistula Causalgia of lower limb Surgical History Surgical History H/O fasciotomy Status post repair of nerve Social History Social History Smoking status: Former smoker Smoking end date: 08/11/04 Additional smoking assessment comments: quit 20 years ago Alcohol intake: current Drinks per week: 2 Substance use type: unknown Lack of Transportation: YES Lack of Food: Sometimes True Current Housing: I Have Housing Concerned About Future Housing: No Difficulty Paying Gas/Electric Bills: No Difficulty Paying for Meds: No Currently Unemployed: No Education: Master's Degree or Higher Difficulty w/ Childcare or Family Care: No Living arrangements: with family Occupation/Education: occupation Gender identity (if verbalized by the patient): Male Spiritual care concerns: No Agree to blood products: Yes Exam 2 Narrative: GENERAL: Adversarial, does not make eye contact, psychotic with speech patterns and demeanor HEAD: [Normocephalic, atraumatic.] EYES: [PERRLA and EOMI.] ENT: Nares clear, no rhinorrhea or epistaxis. Mucous membranes moist. NECK: Supple. CHEST: [Clear to auscultation. No respiratory distress.] HEART: [Regular rate and rhythm]. No murmur heard. [Normal peripheral pulses.] ABDOMEN: [Soft, nondistended], [nontender], [No rigidity or guarding] EXTREMITIES: Normal range of motion. [No edema.] SKIN: Warm, dry, no rash. NEURO: [No focal deficits]. Alert and oriented [x3.] PSYCH: Psychotic with adversarial demeanor, does not make direct eye contact, florid speech patterns with tangential thought process, denies suicidality or homicidality. Denies voices. Course Vital Signs Vital signs: Vital Signs Temperature 36.7 C 12/03/24 19:49 Pulse Rate 90 12/03/24 19:49 Respiratory Rate 18 12/03/24 19:49 Blood Pressure 139/76 12/03/24 19:49 Pulse Oximetry 96 12/03/24 19:49 Oxygen Delivery Room Air 12/03/24 19:49 Temperature 36.7 C 12/03/24 19:49 Pulse Rate 90 12/03/24 19:49 Respiratory Rate 18 12/03/24 19:49 Blood Pressure 139/76 12/03/24 19:49 Pulse Oximetry 96 12/03/24 19:49 Oxygen Delivery Room Air 12/03/24 19:49 MDM - Psych MDM Narrative Medical decision making narrative: 49-year-old male with a history of psychiatric illness presenting to the emergency department in police custody after he was found trespassing through numerous bars, neighboring yd and stealing things out of trash cans. Patient is floridly psychotic, very adversarial in demeanor, denies homicidality and suicidality. Does not seem to be making any sense and is not sure what is going on. provide collateral information to staff. Patient is in custody with chief human resources officer at bedside. Patient is not in any acute distress but does have signs and symptoms of decompensated psychiatric illness. He is hemodynamically stable. He is adversarial but agreeable to blood draw and mental health assistance. Psychiatric screening laboratory studies were obtained. P.r.n. Haldol and Versed were ordered intramuscularly if needing to be injected. Blood was drawn successfully, patient has a sitter at bedside and elopement precautions ordered. Please have filled out involuntary form for psychiatric evaluation. Patient's laboratory studies are largely unremarkable. UDS positive for marijuana, some slightly low TSH but not significant or contributing to his symptoms. His laboratory studies are otherwise normal. He has normal vital signs and remained psychotic at this time. Patient is cooperative at this time and the crisis team will, evaluate him. He is medically cleared for psychiatric evaluation and placement. Patient care will be signed out to oncoming physician pending final disposition per psychiatry team. Medical Records Attestation: I reviewed the patient's medical records. Lab Data Attestation: I reviewed the patient's lab results. 12/03/24 20:19 12/03/24 20:19 Labs: Lab Results 12/03/24 12/03/24 12/03/24 Range/Units 20:18 20:19 20:42 WBC 6.2 (4.5-10.0) K/mm3 RBC 4.07 L (4.6-6.20) M/mm3 Hgb 12.4 L (14.0-18.0) g/dL Hct 35.5 L (42.0-52.0) % MCV 87.2 (80-100) fl MCH 30.5 (26-34) pg MCHC 34.9 (32-36) g/dl RDW 12.8 (11.5-14.5) % Plt Count 315 (150-375) k/mm3 MPV 9.4 (7.4-10.4) fl Immature Gran % (Auto) 0.2 (0-0.5) % Neut % (Auto) 71.7 (45.5-73.1) % Lymph % (Auto) 20.4 (18.3-44.2) % S[place]th % (Auto) 6.6 (2.6-8.5) % Eos % (Auto) 0.5 (0-4.4) % Baso % (Auto) 0.6 (0.2-1.2) % Lymph # (Auto) 1.27 (0.9-3.2) K/mm3 Smyth # (Auto) 0.4 (0.1-0.6) K/mm3 Eos # (Auto) 0.0 (0-0.3) K/mm3 Baso # (Auto) 0.0 (0.0-0.1) K/mm3 Abs Immat Gran (auto) 0.01 (0.00-0.031) K/mm3 Absolute Neuts (auto) 4.5 (1.3-6.7) K/mm3 Absolute Nucleated RBC 0.000 (0.0-0.012) K/mm3 Nucleated RBC % 0.0 (0.0-0.2) % Sodium 140 (137-145) mmol/L Potassium 3.5 (3.4-5.0) mmol/L Chloride 103 (98-107) mmol/L Carbon Dioxide 27 (22-30) mmol/L Anion Gap 10 (4-12) mmol/L BUN 8 L (9-20) mg/dL Creatinine 0.80 (0.7-1.3) mg/dL Estim Creat Clear Calc 113 ml/min Estimated GFR > 60 (59 - ) Glucose 110 (65-110) mg/dL Calcium 9.0 (8.4-10.2) mg/dL Total Bilirubin 0.7 (0.2-1.3) mg/dL AST 38 (17-59) U/L ALT 29 (6-50) U/L Alkaline Phosphatase 62 (38-126) U/L Total Protein 7.0 (6.3-8.2) g/dL Albumin 4.5 (3.5-5.1) g/dL TSH (Reflex) 0.341 L (0.465-4.68) uIU/mL Free T4 Pending Urine Color Yellow (Yellow) Urine Appearance Clear (Clear) Urine pH 6.5 (5.0-9.0) Ur Specific [place] 1.015 (1.001-1.035) Urine Protein Negative (Negative) mg/dL Urine Glucose (UA) Negative (Negative) mg/dL Urine Ketones Trace H (Negative) mg/dL Ur Blood (Man) Negative (Negative) Urine Nitrate Negative (Negative) Urine Bilirubin Negative (Negative) Urine Urobilinogen 1.0 (<2.0) mg/dL Leukocyte Esterase Rfl Negative (Negative) [place]/UL Urine Opiates Screen Negative (Negative) Urine Methadone Screen Negative (Negative) Ur Barbiturates Screen Negative (Negative) Ur Phencyclidine Scrn Negative (Negative) Ur Amphetamine Screen Negative (Negative) U Benzodiazepines Scrn Negative (Negative) Urine Cocaine Screen Negative (Negative) U Cannabinoids Screen Positive A (Negative) Ethyl Alcohol < 10 (<10) mg/dL Influenza A (RT-PCR) Negative (Negative) Influenza B (RT-PCR) Negative (Negative) RSV (RT-PCR) Negative (Negative) SARS-CoV-2 RNA (RT-PCR) Negative (Negative) Critical Care Time Critical Care Time Critical Care Time: Yes Total Critical Care Time: 35 Discharge Plan Discharge Clinical Impression: Psychiatric illness Patient Disposition: Still a Patient Condition: Stable Patient Language: Vietnamese Prescriptions: No Action sertraline 50 mg tablet PO aripiprazole 20 mg tablet PO Follow-up/Referrals: UNKNOWN,DOCTOR [Primary Care Provider] -
--- OUTSIDE RECORDS SUMMARY | 2024-12-03 20:18 | XMS_ITS | Referral Summary ---
Author Organization [facility] Address [address] [place] [address] Care Team Providers Care Supervisor Inspection Name Role Phone Chelsea Mccormick MD Primary Care Provider [phone] Soco Weeks MD Unavailable [phone] Encounters Date Type Department Care Team Description 11/25/2024 12:30 PM CDT Office Visit [facility] [address] [facility] [facility] [address] [place] [address] Soco Weeks MD Adjustment disorders, with depressed mood (Primary Dx); Narcissistic personality disorder (HCC) 11/24/2024 1:00 PM CDT Office Visit [facility] Pain Management [address] [place] [phone] Leon Byrd, PhD Adjustment disorder with mixed anxiety and depressed mood (Primary Dx); Other chronic pain 11/20/2024 12:08 PM CDT - 11/22/2024 3:46 PM CDT Hospital Encounter [facility] [address] [place] [phone] Jethro Pena MD Trillo Alvarez, Ludwig, MD Adjustment disorders, with depressed mood (Primary Dx); Cannabis use disorder, mild; Chronic pain syndrome; Normocytic anemia Discharge Disposition: Discharge to home or self care 11/19/2024 3:13 PM CDT - 11/20/2024 12:02 PM CDT Emergency [facility] Emergency Department [address] [place] [address] Anxiety (Primary Dx); Depression, unspecified depression type Discharge Disposition: Discharge to psych hospital or psych unit 11/17/2024 9:00 AM CDT Office Visit [facility] Pain Management [facility] [place] [address] Leon Byrd, PhD Adjustment disorder with mixed anxiety and depressed mood (Primary Dx); Other chronic pain 11/11/2024 4:08 AM CDT - 11/11/2024 8:15 AM CDT Emergency [facility] Emergency Department [address] [place] [phone] Manolo Allen MD Beirne, Gregory J., Mental health problem (Primary Dx); Depression, unspecified depression type Discharge Disposition: Discharge to home or self care 11/10/2024 9:00 AM CDT Office Visit [facility] Pain Management [facility] [place] [phone] Leon Byrd, PhD Adjustment disorder with mixed anxiety and depressed mood (Primary Dx); Other chronic pain 11/08/2024 Telephone [facility] Pain Management [address] [place] [phone] Leon Byrd, PhD Mental Health Crisis (November called this morning concerned for Chelsea. She stated he is closing himself off from everyone. Her and their daughter recently left the house to stay with family b/c of how bad things have gotten. Chelsea has gotten rid of his phone and she is not able to contact az. He has also started giving away other [...] numbers to multiple facilities to get assistance: [facility] [phone], [address] [facility] [place], [address]; [facility] [phone], [address] , [phone], and Mental health crisis line 598. Blanca says she will call back if anything changes. Chelsea currently sees Dr. Leon Byrd for psychology.) 11/08/2024 Telephone [facility] Pain Management [facility] [place] [address] Leon Byrd, PhD 10/27/2024 Telephone [facility] [email or web address] [address] [place] [phone] Nisha Shabazz, FLIGHT MECHANIC 10/27/2024 9:00 AM CDT Office Visit [facility] Pain Management [address] [place] [phone] Leon Byrd, PhD Adjustment disorder with mixed anxiety and depressed mood (Primary Dx); Other chronic pain 10/13/2024 9:00 AM FINANCIAL COORDINATOR Office Visit [facility] Pain Management [address] [place] [phone] Leon Byrd, PhD Other chronic pain (Primary Dx); Adjustment disorder with mixed anxiety and depressed mood 10/06/2024 9:00 AM FINANCIAL COORDINATOR Office Visit [facility] Pain Management [address] [place] [phone] Leon Byrd, PhD Other chronic pain [...] drink = 0.6 oz pur e alcohol) [facility] Utilities Answer Date Recorded In the past 12 months has e [employer], gas, oil, or water [employer] threatened to shut off services in your [...] How often do you attend chur or caodaism services? Never 11/20/2024 Do you belong to any clubs o r organizations such as confucianist groups, unions, fraternal or athletic groups, or [...] any time in the past 12 m [facility], were you homeless or living in a prison (including now)? No 11/20/2024 Personal Safety Answer Date Recorded Have you ever been in or are you currently in a harmful physical or emotional relationship or is someone making you feel afraid or unsafe? Denies 11/20/2024 Sex and Gender Information Value Date Recorded Sex Assigned at Not on file Legal Sex Male 7:21 AM FINANCIAL COORDINATOR Gender Identity Not on file Sexual Orientation [...] Date Author No 11/20/2024 2:09 PM CDT eTresa Valdez LCSW Plan of Treatment Not on [...] w/ IBC (11/22/2024 5:22 AM CDT) Pathologist [facility] Iron 95 50 - 150 mcg/dL TIBC 299 250 - 400 mcg/dL [facility] Transferrin saturation 32 20 - 50 % [facility] Blood 11/22/2024 5:22 AM CDT 11/22/2024 9:34 AM CDT Earl Dos Santos MD LAB BLOOD ORDERABLES Final Result [facility] Department [place] [address] * HIV 1/2 Antibody plus p24 Antigen Blood (11/22/2024 5:22 AM CDT) Pathologist [facility] HIV 1/2 ab + p24 [...] ENERAL ORDERABLES Final Result Performing Organization Address [facility] Co de Phone Number [facility] [place] [place] [address] * Hepatitis C antibody Blood (11/22/2024 5:22 AM CDT) Hep C Ab Nonreactive Nonreactive Comment:Antibodies to HCV no t detected. Does NOT exclude the possibility of recent exposure to HCV. Current interpretive data was last revised on 22 Blood 11/22/2024 5:22 AM CDT 11/22/2024 9:34 AM CDT Earl Dos Santos MD LAB MICROBIOLOGY - G ENERAL ORDERABLES Final Result Performing Organization Address [facility] [place] [address] * Hepatitis B core antibody, total Blood (11/22/2024 5:22 AM CDT) Pathologist [facility] Hep B core IgG/IgM Nonreactive Nonreactive Blood 11/22/2024 5:22 AM CDT 11/22/2024 9:34 AM CDT Earl Dos Santos MD LAB MICROBIOLOGY - G ENERAL ORDERABLES Final Result Performing Organization Address [facility] Co de Phone Number [facility] Department [place] [employer] [place] [address] * Hepatitis B surface antibody (immune status) [...] ENERAL ORDERABLES Final Result Performing Organization Address City/[facility] Co de Phone Number [facility] Department [place] [employer] [place] [address] * Hepatitis B Surface Antigen Blood (11/22/2024 5:22 AM CDT) Pathologist [facility] HepBsAg Nonreactive Nonreactive Blood 11/22/2024 5:22 AM CDT 11/22/2024 9:34 AM CDT Ealr Dos Santos MD LAB MICROBIOLOGY - G ENERAL ORDERABLES Final Result Performing Organization Address [facility] de Phone Number [facility] [place] [address] * (ABNORMAL) Reticulocyte Count (11/22/2024 5:22 AM CDT) [facility] Retics, absolute 106(H) 20 - 87 K/cumm Retics 2.5 0.4 - 2.9 % [facility] Reticulocyte Hgb 34.3 30.5 - 38.0 pg [facility] Blood 11/22/2024 5:22 AM CDT 11/22/2024 9:34 AM CDT Earl Dos Santos MD LAB BLOOD ORDERABLES Final Result Performing Organization Address [facility] Co de Phone Number [facility] [place] [address] * Hemoglobin A1c (11/22/2024 5:22 AM CDT) [facility] Hgb A1C 5.4 4.0 - 5.6 % Estimated Average Glucose 108 mg/dL [facility] Comment: The ADA recommends reporting an [...] BLOOD ORDERABLES Final Result Performing Organization Address City/[facility] Co de Phone Number [facility] [employer] [address] * Folate (11/22/2024 5:22 AM CDT) Pathologist [facility] Folic acid >20.0 >=5.0 ng/mL Blood 11/22/2024 5:22 AM CDT 11/22/2024 9:34 AM CDT Earl Dos Santos MD LAB BLOOD ORDERABLES Final Result Performing Organization Address [facility] de Phone Number [facility] [place] [address] * Ferritin (11/22/2024 5:22 AM CDT) Pathologist [facility] Ferritin 197 30 - 400 ng/mL Blood 11/22/2024 5:22 AM CDT 11/22/2024 9:34 AM CDT Earl Dos Santos MD LAB BLOOD ORDERABLES Final Result Performing Organization Address [facility] de Phone Number [facility] [place] [address] * Vitamin B12 (11/22/2024 5:22 AM CDT) Vitamin B12 317 230 - 1,250 pg/mL Blood 11/22/2024 5:22 AM CDT 11/22/2024 9:34 AM CDT Earl Dos Santos MD LAB BLOOD ORDERABLES Final Result [facility] Department [place] [address] * COVID-19 Coronavirus RNA Nasopharyngeal (11/20/2024 5:30 AM CDT) [facility] COVID-19 RNA Negative Negative Nasopharyngeal 11/20/2024 5: 30 AM CDT 11/20/2024 5:44 AM CDT Narrative [facility] - 11/20/2024 6:18 AM CDT Is the patient experiencing any symptoms consistent with COVID (eg. Fever, cough, shortness of breath)?->No What is the reason for testing?->Screening prior to Behavioral health admission Interpretive data Testing performed by [facility]. This test is performed using the [employer] Xpert Xpress CoV-2 plus assay. This is a real-time RT-PCR test intended for the qualitative detection of nucleic acid from the SARS-CoV-2. This assay has been cleared by the [place] Food and Drug administration. The performance characteristics have been verified by the [facility]. Results must be considered in the clinical context, and a negative result does not rule out infection. Interpretive data last revised 2024. Interpretive data Testing performed by [facility]. This test is performed using the [employer] Xpert Xpress CoV-2 plus assay. This is a real-time RT-PCR test intended for the qualitative detection of nucleic acid from the SARS-CoV-2. This assay has been cleared by the [place] Food and Drug administration. The performance characteristics have been verified by the [facility]. Results must be considered in the clinical context, and a negative result does not rule out infection. Interpretive data last revised 2024. us Latasha Mann NP LAB MICROBIOLOGY - GENERAL ORDERABLES Final Result [facility] [address] Department [place] [address] * Urinalysis reflex to microscopic and culture Urine (11/19/2024 4:39 PM CDT) Color, ur Straw Yellow Clarity, ur Clear Clear [facility] Specific gravity, ur 1.005 1.003 - 1.030 [facility] pH, urine 6.5 [facility] Comment: Interpretive Data U rine pH is affected by diet, medications, systemic acid-base disturbances, and renal tubular function. pH may affect urinary stone formation. For example, urine pH below 6.0 may help reduce the tendency for calcium phosphate stones and pH greater than 6.0 may reduce the tendency for uric acid stone formation. Source: [facility] Current Interpretive Data was last revised on 2017 Protein, ur ql Negative Negative [facility] Glucose, ur ql Negative Negative [facility] Ketones, ur Negative Negative [facility] Bilirubin, ur Negative Negative [facility] Blood, ur Negative Negative [facility] Urobilinogen, ur <2.0 <2.0 mg/dL [facility] Nitrite, ur Negative Negative [facility] Leukocyte esterase, ur Negative Negative [facility] UA reflex comment Reflex conditions for microscopic UA and culture not met. [facility] Urine 11/19/2024 4:39 PM CDT 11/19/2024 4:39 PM CDT Venessa HORTON LAB MICROBIOLOGY - ASIYA AL ORDERABLES Final Result [facility] [address] Department [place] [address] * (ABNORMAL) Drugs of Abuse Screen, Urine [...] 2023. Barbiturates, ur Not Detected CutOff 200ng/mL [facility] Comment: Interpretive Data - Barbiturates: Samples containing greater than 200 ng/mL secobarbital or other cross-reacting barbiturate compounds are reported as positive. False positive and false negative results are possible. Confirmatory testing required for definitive results. Current Interpretive Data was last reviewed 2023. Benzodiazepines, ur Not Detected CutOff 100ng/mL [facility] Comment: Interpretive Data - Benzodiazepines: Samples containing greater than 100 ng/mL nordiazepam or other cross-reacting compounds are reported as positive. False positive and false negative results are possible. Confirmatory testing required for definitive results. Current Interpretive Data was last reviewed 2023. Cannabinoids, ur Screen Positive, presumptive (A) CutOff 50 ng/mL [facility] Comment: Interpretive Data - Cannabinoids: Samples containing greater than 50 ng/mL delta-9 THC -COOH or other cross- reacting compounds are reported as positive. False positive and false negative results are possible. Confirmatory testing required for definitive results. Current Interpretive Data was last reviewed 2023. Cocaine, ur Not Detected CutOff 150ng/mL [facility] Comment: Interpretive Data - Cocaine: Samples containing greater than 150 ng/mL benzoylecgonine or other cross- reacting compounds are reported as positive. False positive and false negative results are possible. Confirmatory testing required for definitive results. Current Interpretive Data was last reviewed 2023. Fentanyl, Ur Not Detected CutOff 5 ng/mL [facility] Comment: Interpretive Data - Fentanyl: Samples containing greater than 5 ng/mL norfentanyl, fentanyl, or other cross-reacting fentanyl compounds are reported as positive. False positive and false negative results are possible. Confirmatory testing required for definitive results. Current Interpretive Data was last reviewed 2023. Methadone, ur Not Detected CutOff 300ng/mL [facility] Comment: Interpretive Data - Methadone: Samples containing greater than 300 ng/mL d,l-methadone or other cross-reacting compounds are reported as positive. False positive and false negative results are possible. Confirmatory testing required for definitive results. Current Interpretive Data was last reviewed 2023. Opiates, ur Not Detected CutOff 300ng/mL [facility] Comment: Interpretive Data - Opiates: Samples containing greater than 300 ng/mL morphine or other cross-reacting compounds are reported as positive. False positive and false negative results are possible. Confirmatory testing required for definitive results. Current Interpretive Data was last reviewed 2023. Oxycodone, ur Not Detected CutOff 100ng/mL [facility] Comment: Interpretive Data - Oxycodone: Samples containing greater than 100 ng/mL oxycodone or other cross-reacting compounds are reported as positive. False positive and false negative results are possible. Confirmatory testing required for definitive results. Current Interpretive Data was last reviewed 2023. Phencyclidine, ur Not Detected CutOff 25 ng/mL [facility] Comment: Interpretive Data - Phencyclidine: Samples containing greater than 25 ng/mL phencyclidine or other cross-reacting compounds are reported as positive. False positive and false negative results are possible. Confirmatory testing required for definitive results. Current Interpretive Data was last reviewed 2023. Urine Creatinine 40 mg/dL [facility] Comment: Interpretive Data Urine Creatinine: < 10 mg/dL is extremely dilute = or > 10 but < 20 mg/dL is dilute = or > 20 mg/dL is normal Current Interpretive Data was last revised on 2017. Urine 11/19/2024 4:39 PM CDT 11/19/2024 4:58 PM CDT Narrative [facility] - 11/19/2024 5:28 PM CDT Drug of Abuse screening is performed by immunoassay for medical purposes only. This is not to be used for Pain Management purposes. Venessa HORTON LAB URINE ORDERABLES Fin al Result [facility] [address] Department [place] [address] * eGFR (11/19/2024 4:01 PM [...] PM CDT Venessa HORTON LAB BLOOD ORDERABLES [facility] al Result [facility] [address] Department of Laboratories [place], [place] [id number] * Differential, auto (11/19/2024 4:01 PM CDT) Neutrophil abs 3.37 1.50 - 6.50 K/cumm Imm gran abs 0.02 0.00 - 0.10 K/cumm [facility] Lymphocyte abs 1.74 0.80 - 3.30 K/cumm [facility] Monocyte abs 0.43 0.20 - 0.80 K/cumm [facility] Eosinophil abs 0.05 0.00 - 0.50 K/cumm [facility] Basophil abs 0.04 0.00 - 0.10 K/cumm [facility] Neutrophil pct 59.6 % [facility] Comment: Interpretive Data Percent cell count reference ranges are not reported, since discordance with absolute values may lead to misinterpretation of CBC data. Current Interpretive Data was last revised on 2017. Imm gran pct 0.4 % [facility] Comment: Interpretive Data Percent cell count reference ranges are not reported, since discordance with absolute values may lead to misinterpretation of CBC data. Current Interpretive Data was last revised on 2017. Lymphocyte pct 30.8 % [facility] Comment: Interpretive Data Percent cell count reference ranges are not reported, since discordance with absolute values may lead to misinterpretation of CBC data. Current Interpretive Data was last revised on 2017. Monocyte pct 7.6 % [facility] Comment: Interpretive Data Percent cell count reference ranges are not reported, since discordance with absolute values may lead to misinterpretation of CBC data. Current Interpretive Data was last revised on 2017. Eosinophil pct 0.9 % [facility] Comment: Interpretive Data Percent cell count reference ranges are not reported, since discordance with absolute values may lead to misinterpretation of CBC data. Current Interpretive Data was last revised on 2017. Basophil pct 0.7 % [facility] Comment: Interpretive Data Percent cell count reference ranges are not reported, since discordance with absolute values may lead to misinterpretation of CBC data. Current Interpretive Data was last revised on 2017. Blood 11/19/2024 4:01 PM CDT 11/19/2024 4:11 PM CDT Venessa HORTON LAB BLOOD ORDERABLES Fin al Result Performing Organization Address [facility] Co de Phone Number [facility] [address] [facility] [place] [address] * Thyroid Function Starr (11/19/2024 4:01 PM CDT) TSH 0.42 0.30 - 4.20 mcIUnit/mL Blood 11/19/2024 4:01 PM CDT 11/19/2024 4:11 PM CDT Venessa Chapa MT LAB BLOOD ORDERABLES Fin al Result Performing Organization Address City/[facility]/ZIP Co de Phone Number [facility] [address] [place] [address] * (ABNORMAL) CBC with auto differential (11/19/2024 4:01 PM CDT) [facility] WBC 5.65 3.80 - 9.90 K/cumm Hgb 12.8(L) 13.0 - 17.5 g/dL [facility] Hct 36.8(L) 38.9 - 50.3 % [facility] Plt 335 150 - 400 K/cumm [facility] MPV 9.6 9.1 - 12.3 fL [facility] RBC 4.25(L) 4.30 - 5.80 M/cumm [facility] MCV 86.6 81.3 - 96.4 fL [facility] MCH 30.1 27.1 - 33.3 pg [facility] MCHC 34.8 32.3 - 35.7 g/dL [facility] RDW CV 12.2 11.1 - 14.9 % [facility] RDW SD 38.5 35.7 - 48.1 fL [facility] NRBC abs 0.00 0.00 - 0.01 K/cumm [facility] Blood 11/19/2024 4:01 PM CDT 11/19/2024 4:11 PM CDT Venessa HORTON LAB BLOOD ORDERABLES Fin al Result [facility] [address] Department [place] [place] [address] * Ethanol (11/19/2024 4:01 PM CDT) [facility] Ethanol <10 <=10 mg/dL Comment: Interpretive Data Legal limit of intoxication > or = 80 mg/dL Levels > or = 400 mg/dL are potentially TOXIC. Current interpretive data was last revised on 2018. Blood 11/19/2024 4:01 PM CDT 11/19/2024 4:10 PM CDT Venessa HORTON LAB BLOOD ORDERABLES Fin al Result [facility] [address] Department [place] [address] * (ABNORMAL) Lipid panel (11/19/2024 4:01 PM [...] revised on 2018. Triglycerides 115 <=149 mg/dL [facility] Comment: Interpretive Data Ages < [...] revised on 2018. HDL 47 >=40 mg/dL [facility] Comment: Interpretive Data Ages < [...] on 2018. LDL, calculated 150(H) <=129 mg/dL [facility] Comment: Interpretive Data Ages < [...] Circulation 2004;110:227 3. Bruce Ortega et al. ADA Cardiol. 2020 December 09;5(5):540-548. doi: 10.1001/jamacardio.2020.0013 Current Interpretive Data was last revised on 2024. Non-HDL Cholesterol 171 mg/dL [facility] Comment: Interpretive Data Ages < [...] last revised on 2018. Chol/HDL ratio 5 [facility] Blood 11/19/2024 4:01 PM CDT 11/19/2024 4:11 PM CDT us Earl Dos Santos MD LAB BLOOD ORDERABLES Final Result [facility] [address] Department [place] [address] * (ABNORMAL) Basic metabolic panel (11/19/2024 4:01 PM CDT) Sodium 137 135 - 145 mmol/L Potassium, pl 4.2 3.3 - 4.9 mmol/L [facility] Chloride 99 97 - 110 mmol/L [facility] CO2 26 22 - 32 mmol/L [facility] Anion gap 12 2 - 15 mmol/L [facility] BUN 4(L) 6 - 25 mg/dL [facility] Creatinine 0.78(L) 0.80 - 1.30 mg/dL [facility] Glucose 117 70 - 199 mg/dL [facility] Comment: Interpretive Data Fasting glucose [...] 2022. Calcium 9.4 8.5 - 10.3 mg/dL [facility] [facility] Blood 11/19/2024 4:01 PM CDT 11/19/2024 4:11 PM CDT Venessa HORTON LAB BLOOD ORDERABLES [facility] al Result [facility] [address] Department [place] [address] * Urinalysis reflex to microscopic and culture Urine (11/11/2024 5:02 AM CDT) Pathologist [facility] Color, ur Straw Yellow Clarity, ur Clear Clear [facility] Specific gravity, ur 1.005 1.003 - 1.030 [facility] pH, urine 7.0 [facility] Comment: Interpretive Data U rine pH is affected by diet, medications, systemic acid-base disturbances, and renal tubular function. pH may affect urinary stone formation. For example, urine pH below 6.0 may help reduce the tendency for calcium phosphate stones and pH greater than 6.0 may reduce the tendency for uric acid stone formation. Source: [facility] Current Interpretive Data was last revised on 2017 Protein, ur ql Negative Negative [facility] Glucose, ur ql Negative Negative [facility] Ketones, ur Negative Negative [facility] Bilirubin, ur Negative Negative [facility] Blood, ur Negative Negative [facility] Urobilinogen, ur <2.0 <2.0 mg/dL [facility] Nitrite, ur Negative Negative [facility] Leukocyte esterase, ur Negative Negative [facility] UA reflex comment Reflex conditions for microscopic UA and culture not met. [facility] Urine 11/11/2024 5:02 AM CDT 11/11/2024 5:21 AM CDT Manolo Allen MD LAB MICROBIOLOGY - [facility] ORDERABLES Final Result [facility] [address] Department [place] [address] * (ABNORMAL) Drugs of Abuse Screen, Urine [...] 2023. Barbiturates, ur Not Detected CutOff 200ng/mL [facility] Comment: Interpretive Data - Barbiturates: Samples containing greater than 200 ng/mL secobarbital or other cross-reacting barbiturate compounds are reported as positive. False positive and false negative results are possible. Confirmatory testing required for definitive results. Current Interpretive Data was last reviewed 2023. Benzodiazepines, ur Not Detected CutOff 100ng/mL [facility] Comment: Interpretive Data - Benzodiazepines: Samples containing greater than 100 ng/mL nordiazepam or other cross-reacting compounds are reported as positive. False positive and false negative results are possible. Confirmatory testing required for definitive results. Current Interpretive Data was last reviewed 2023. Cannabinoids, ur Screen Positive, presumptive (A) CutOff 50 ng/mL [facility] Comment: Interpretive Data - Cannabinoids: Samples containing greater than 50 ng/mL delta-9 THC -COOH or other cross- reacting compounds are reported as positive. False positive and false negative results are possible. Confirmatory testing required for definitive results. Current Interpretive Data was last reviewed 2023. Cocaine, ur Not Detected CutOff 150ng/mL [facility] Comment: Interpretive Data - Cocaine: Samples containing greater than 150 ng/mL benzoylecgonine or other cross- reacting compounds are reported as positive. False positive and false negative results are possible. Confirmatory testing required for definitive results. Current Interpretive Data was last reviewed 2023. Fentanyl, Ur Not Detected CutOff 5 ng/mL [facility] Comment: Interpretive Data - Fentanyl: Samples containing greater than 5 ng/mL norfentanyl, fentanyl, or other cross-reacting fentanyl compounds are reported as positive. False positive and false negative results are possible. Confirmatory testing required for definitive results. Current Interpretive Data was last reviewed 2023. Methadone, ur Not Detected CutOff 300ng/mL [facility] Comment: Interpretive Data - Methadone: Samples containing greater than 300 ng/mL d,l-methadone or other cross-reacting compounds are reported as positive. False positive and false negative results are possible. Confirmatory testing required for definitive results. Current Interpretive Data was last reviewed 2023. Opiates, ur Not Detected CutOff 300ng/mL [facility] Comment: Interpretive Data - Opiates: Samples containing greater than 300 ng/mL morphine or other cross-reacting compounds are reported as positive. False positive and false negative results are possible. Confirmatory testing required for definitive results. Current Interpretive Data was last reviewed 2023. Oxycodone, ur Not Detected CutOff 100ng/mL [facility] Comment: Interpretive Data - Oxycodone: Samples containing greater than 100 ng/mL oxycodone or other cross-reacting compounds are reported as positive. False positive and false negative results are possible. Confirmatory testing required for definitive results. Current Interpretive Data was last reviewed 2023. Phencyclidine, ur Not Detected CutOff 25 ng/mL [facility] Comment: Interpretive Data - Phencyclidine: Samples containing greater than 25 ng/mL phencyclidine or other cross-reacting compounds are reported as positive. False positive and false negative results are possible. Confirmatory testing required for definitive results. Current Interpretive Data was last reviewed 2023. Urine Creatinine 28 mg/dL [facility] Comment: Interpretive Data Urine Creatinine: < 10 mg/dL is extremely dilute = or > 10 but < 20 mg/dL is dilute = or > 20 mg/dL is normal Current Interpretive Data was last revised on 2017. Urine 11/11/2024 5:02 AM CDT 11/11/2024 5:21 AM CDT [facility] - 11/11/2024 5:49 AM CDT Drug of Abuse screening is performed by immunoassay for medical purposes only. This is not to be used for Pain Management purposes. Manolo Allen MD LAB URINE ORDERABLES Fi nal Result [facility] [address] Department [place] [address] * eGFR (11/11/2024 4:38 AM CDT) eGFR [...] Bernstein DO LAB BLOOD ORDERABLES Final Result [facility] [address] Department [place] [address] * Differential, auto (11/11/2024 4:38 AM CDT) Neutrophil abs 3.14 1.50 - 6.50 K/cumm Imm gran abs 0.03 0.00 - 0.10 K/cumm [facility] Lymphocyte abs 1.64 0.80 - 3.30 K/cumm [facility] Monocyte abs 0.49 0.20 - 0.80 K/cumm [facility] Eosinophil abs 0.07 0.00 - 0.50 K/cumm [facility] Basophil abs 0.05 0.00 - 0.10 K/cumm [facility] Neutrophil pct 57.9 % [facility] Comment: Interpretive Data Percent cell count reference ranges are not reported, since discordance with absolute values may lead to misinterpretation of CBC data. Current Interpretive Data was last revised on 2017. Imm gran pct 0.6 % [facility] Comment: Interpretive Data Percent cell count reference ranges are not reported, since discordance with absolute values may lead to misinterpretation of CBC data. Current Interpretive Data was last revised on 2017. Lymphocyte pct 30.3 % [facility] Comment: Interpretive Data Percent cell count reference ranges are not reported, since discordance with absolute values may lead to misinterpretation of CBC data. Current Interpretive Data was last revised on 2017. Monocyte pct 9.0 % [facility] Comment: Interpretive Data Percent cell count reference ranges are not reported, since discordance with absolute values may lead to misinterpretation of CBC data. Current Interpretive Data was last revised on 2017. Eosinophil pct 1.3 % [facility] Comment: Interpretive Data Percent cell count reference ranges are not reported, since discordance with absolute values may lead to misinterpretation of CBC data. Current Interpretive Data was last revised on 2017. Basophil pct 0.9 % [facility] Comment: Interpretive Data Percent cell count reference ranges are not reported, since discordance with absolute values may lead to misinterpretation of CBC data. Current Interpretive Data was last revised on 2017. Blood 11/11/2024 4:38 AM CDT 11/11/2024 4:47 AM CDT us Manolo Allen MD LAB BLOOD ORDERABLES Fi nal Result [facility] [address] Department [place] [address] * (ABNORMAL) CBC with auto differential (11/11/2024 4:38 AM CDT) WBC 5.42 3.80 - 9.90 K/cumm Hgb 12.6(L) 13.0 - 17.5 g/dL [facility] Hct 36.1(L) 38.9 - 50.3 % [facility] Plt 295 150 - 400 K/cumm [facility] MPV 9.8 9.1 - 12.3 fL [facility] RBC 4.17(L) 4.30 - 5.80 M/cumm [facility] MCV 86.6 81.3 - 96.4 fL [facility] MCH 30.2 27.1 - 33.3 pg [facility] MCHC 34.9 32.3 - 35.7 g/dL [facility] RDW CV 12.1 11.1 - 14.9 % [facility] RDW SD 38.8 35.7 - 48.1 fL [facility] NRBC abs 0.00 0.00 - 0.01 K/cumm [facility] Blood 11/11/2024 4:38 AM CDT 11/11/2024 4:47 AM CDT Manolo Allen MD LAB BLOOD ORDERABLES Fi nal Result Performing Organization Address City/[facility]/ZIP Co de Phone Number [facility] [address] [facility] [employer] [place] [address] * Ethanol (11/11/2024 4:38 AM CDT) Ethanol <10 <=10 mg/dL Comment: Interpretive Data Legal limit of intoxication > or = 80 mg/dL Levels > or = 400 mg/dL are potentially TOXIC. Current interpretive data was last revised on 2018. Blood 11/11/2024 4:38 AM CDT 11/11/2024 4:47 AM CDT Manolo Allen MD LAB BLOOD ORDERABLES Fi nal Result Performing Organization Address [facility] Co de Phone Number [facility] [address] [facility] [employer] [place], [place] [id number] * Acetaminophen level (11/11/2024 4:38 AM CDT) [...] after ingestion Consult toxicology or poison control ([phone]) for unknown ingestion time. Current interpretive data was last revised 2023. Blood 11/11/2024 4:38 AM CDT 11/11/2024 4:47 AM CDT Manolo Allen MD LAB BLOOD ORDERABLES Fi nal Result Performing Organization Address City/[facility] Co de Phone Number [facility] [address] [facility] [employer] [place], [place] [id number] * Salicylate level (11/11/2024 4:38 AM CDT) [facility] Salicylate <9.0 <=9.0 mg/dL Comment: Interpretive Data Toxic: 30 mg/dL or greater. Current interpretive data was last revised 2023. Blood 11/11/2024 4:38 AM CDT 11/11/2024 4:47 AM CDT Manolo Allen MD LAB BLOOD ORDERABLES Fi nal Result Performing Organization Address [facility] Co de Phone Number [facility] [address] Department [place] [address] * Hepatic function panel (11/11/2024 4:38 AM CDT) [facility] Bilirubin, total 0.4 0.1 - 1.2 mg/dL Bilirubin, direct <0.2 0.1 - 0.3 mg/dL [facility] Protein, pl 6.7 6.5 - 8.5 g/dL [facility] Albumin 4.1 3.5 - 5.0 g/dL [facility] Alk phos 67 40 - 130 Units/L [facility] ALT 23 7 - 55 Units/L [facility] AST 26 10 - 50 Units/L [facility] Blood 11/11/2024 4:38 AM CDT 11/11/2024 4:47 AM CDT Manolo Allen MD LAB BLOOD ORDERABLES Fi nal Result Performing Organization Address [facility] Co de Phone Number [facility] [address] Department [place] [employer] [place] [address] * (ABNORMAL) Basic metabolic panel (11/11/2024 4:38 AM CDT) [facility] Sodium 141 135 - 145 mmol/L Potassium, pl 3.7 3.3 - 4.9 mmol/L [facility] Chloride 104 97 - 110 mmol/L [facility] CO2 23 22 - 32 mmol/L [facility] Anion gap 14 2 - 15 mmol/L [facility] BUN 9 6 - 25 mg/dL [facility] Creatinine 0.75(L) 0.80 - 1.30 mg/dL [facility] Glucose 101 70 - 199 mg/dL [facility] Comment: Interpretive Data Fasting glucose [...] 2022. Calcium 9.1 8.5 - 10.3 mg/dL [facility] Blood 11/11/2024 4:38 AM CDT 11/11/2024 4:47 AM CDT Andrew Bernstein DO LAB BLOOD ORDERABLES Final Result [facility] [address] Department [place] [address] from Last 3 Months Insurance [facility] CHOICE [employer]US [facility] Advance Directives For more information, please contact: [phone] * Full Code (Latest Code Status on File) Date Activated Date Inactivated Comments 11/20/2024 12:58 PM 11/22/2024 8:05 PM Care Teams Supervisor Inspection Relationship Specialty Start Date End Date Chelsea Mccormick MD PCP - General Family Medicine 07/29/19 Soco Weeks MD [address] [id number] [place] [address] Resident Psychiatry 11/25/24 02/04/25
--- OUTSIDE RECORDS SUMMARY | 2024-12-03 20:18 | XMS_ITS | Encounter Summary ---
Author Organization [facility] Address [address] [place] [address] Phone Care Team Providers Care [employer] Drier Name Role Phone Edwardo Mccormick MD Primary Care Provider + [phone] Soco Weeks MD Unavailable [phone] Encounter Details Date Type Department Care Team (Late st Contact Info) Description 11/08/2024 Telephone [facility] Pain Management [address] [place] [phone] Leon Byrd, PhD [address] [place], [place] [id number] Social History Tobacco Use Types Packs/Day Years [...] on file 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
--- OUTSIDE RECORDS SUMMARY | 2024-12-03 20:18 | XMS_ITS | Clinical Summary ---
Author Organization [facility] Address [address] [place] [address] Care Team Providers Care Tube Cutter Name Role Phone Chelsea Mccormick MD Primary Care Provider [phone] Soco Weeks MD Unavailable [phone] Allergies No known active allergies Medications [...] Description 11/25/2024 12:30 PM CDT Office Visit [facility] [address] [facility] [address] [facility] [address] [place] [address] Soco Weeks MD Adjustment disorders, with depressed mood (Primary Dx); Narcissistic personality disorder (HCC) 11/24/2024 1:00 PM CDT Office Visit [facility] [address] [place] [id number] Leon Byrd, PhD Adjustment disorder with mixed anxiety and depressed mood (Primary Dx); Other chronic pain 11/20/2024 12:08 PM CDT - 11/22/2024 3:46 PM CDT Hospital Encounter [facility] [address] [place] [address] Jethro Pena MD Trillo Alvarez, Ludwig, MD Adjustment disorders, with depressed mood (Primary Dx); Cannabis use disorder, mild; Chronic pain syndrome; Normocytic anemia Discharge Disposition: Discharge to home or self care 11/19/2024 3:13 PM CDT - 11/20/2024 12:02 PM CDT Emergency [facility] Emergency Department [address] [place] [phone] Anxiety (Primary Dx); Depression, unspecified depression type Discharge Disposition: Discharge to psych hospital or psych unit 11/17/2024 9:00 AM CDT Office Visit [facility] [address] [place] [address] Leon Byrd, PhD Adjustment disorder with mixed anxiety and depressed mood (Primary Dx); Other chronic pain 11/11/2024 4:08 AM CDT - 11/11/2024 8:15 AM CDT Emergency [facility] Emergency Department [address] [place] [address] Manolo Allen MD Beirne, Gregory J., Mental health problem (Primary Dx); Depression, unspecified depression type Discharge Disposition: Discharge to home or self care 11/10/2024 9:00 AM CDT Office Visit [facility] [address] [place] [id number] Leon Byrd, PhD Adjustment disorder with mixed anxiety and depressed mood (Primary Dx); Other chronic pain 11/08/2024 Telephone [facility] [address] [place] [address] Leon Byrd, PhD Mental Health Crisis (November called this morning concerned for Chelsea. She stated he is closing himself off from everyone. Her and their daughter recently left the house to stay with family b/c of how bad things have gotten. Chelsea has gotten rid of his phone and she is not able to contact nd. He has also started giving away other [...] numbers to multiple facilities to get assistance: [facility] [phone], [address] [facility] [place], [address]; [facility] [phone], [address], [phone], and Mental health crisis line 314. November says she will call back if anything changes. Chelsea currently sees Dr. Leon Byrd for psychology.) 11/08/2024 Telephone [facility] [address] [place] [address] Leon Byrd, PhD 10/27/2024 9:00 AM CDT Office Visit [facility] [address] [place] [address] Leon Byrd, PhD Adjustment disorder with mixed anxiety and depressed mood (Primary Dx); Other chronic pain 10/27/2024 Telephone [facility] [employer] [place] [address] [place] [phone] Nisha Shabazz, CIRCUIT JUDGE 10/13/2024 9:00 AM CARROT BUNCHER Office Visit [facility] [address] [place] [address] Leon Byrd, PhD Other chronic pain (Primary Dx); Adjustment disorder with mixed anxiety and depressed mood 10/06/2024 9:00 AM CARROT BUNCHER Office Visit [facility] [address] [place] [address] Leon Byrd, PhD Other chronic pain (Primary [...] drink = 0.6 oz pur e alcohol) [facility] Utilities Answer Date Recorded In the past 12 months has [employer], gas, oil, or water [employer] threatened to shut off services in your [...] How often do you attend chur or orthodoxy services? Never 11/20/2024 Do you belong to any clubs o r organizations such as advent groups, unions, fraternal or athletic groups, or [...] any time in the past 12 m [facility], were you homeless or living in a assisted (including now)? No 11/20/2024 Personal Safety Answer Date Recorded Have you ever been in or are you currently in a harmful physical or emotional relationship or is someone making you feel afraid or unsafe? Denies 11/20/2024 Sex and Gender Information Value Date Recorded Sex Assigned at Not on file Legal Sex Male 7:21 AM CARROT BUNCHER Gender Identity Not on file Sexual Orientation [...] w/ IBC (11/22/2024 5:22 AM CDT) Pathologist [facility] Emergency Department Iron 95 50 - 150 mcg/dL TIBC 299 250 - 400 mcg/dL [facility] Transferrin saturation 32 20 - 50 % [facility] Blood 11/22/2024 5:22 AM CDT 11/22/2024 9:34 AM CDT Result [facility] Earl Dos Santos MD LAB BLOOD ORDERABLES Final Result [facility] [place] [address] * HIV 1/2 Antibody plus p24 Antigen Blood (11/22/2024 5:22 AM CDT) Pathologist [facility] Emergency Department HIV 1/2 ab + p24 ag Nonreactive Nonreactive Comment:Nonreactive for HIV- 1 antigen and HIV-1/HIV-2 antibodies. No laboratory evidence of HIV infection. If acute HIV infection is suspected, consider testing for HIV-1 RNA. Current interpretive data was last revised on 22. Blood 11/22/2024 5:22 AM CDT 11/22/2024 9:34 AM CDT Earl Dos Santos MD LAB MICROBIOLOGY - G ENERAL ORDERABLES Final Result [facility] [place] [address] * Hepatitis C antibody Blood (11/22/2024 5:22 AM CDT) Hep C Ab Nonreactive Nonreactive Comment:Antibodies to HCV no t detected. Does NOT exclude the possibility of recent exposure to HCV. Current interpretive data was last revised on 22 Blood 11/22/2024 5:22 AM CDT 11/22/2024 9:34 AM CDT Earl Dos Santos MD LAB MICROBIOLOGY - G ENERAL ORDERABLES Final Result [facility] [place] [address] * Hepatitis B core antibody, total Blood (11/22/2024 5:22 AM CDT) Pathologist [facility] Emergency Department Hep B core IgG/IgM Nonreactive Nonreactive Blood 11/22/2024 5:22 AM CDT 11/22/2024 9:34 AM CDT Earl Dos Santos MD LAB MICROBIOLOGY - G ENERAL ORDERABLES Final Result [facility] [place] [address] * Hepatitis B surface antibody (immune status) Blood (11/22/2024 5:22 AM CDT) Pathologist [facility] Emergency Department HBsAb (immune status) Nonreactive Comment:This result is consi stent with a lack of immunity to Hepatitis B Virus when used in the setting of routine screening. Current interpretative data was last revised on 22 Blood 11/22/2024 5:22 AM CDT 11/22/2024 9:34 AM CDT Earl Dos Santos MD LAB MICROBIOLOGY - G ENERAL ORDERABLES Final Result Performing Organization Address City/State/[facility] Co de Phone Number [facility] [place] [address] * Hepatitis B Surface Antigen Blood (11/22/2024 5:22 AM CDT) Pathologist [facility] Emergency Department HepBsAg Nonreactive Nonreactive Blood 11/22/2024 5:22 AM CDT 11/22/2024 9:34 AM CDT Earl Dos Santos MD LAB MICROBIOLOGY - G ENERAL ORDERABLES Final Result Performing Organization Address [facility] de Phone Number [facility] [place] [address] * (ABNORMAL) Reticulocyte Count (11/22/2024 5:22 AM CDT) [facility] Retics, absolute 106(H) 20 - 87 K/cumm Retics 2.5 0.4 - 2.9 % [facility] Reticulocyte Hgb 34.3 30.5 - 38.0 pg [facility] Blood 11/22/2024 5:22 AM CDT 11/22/2024 9:34 AM CDT Earl Dos Santos MD LAB BLOOD ORDERABLES Final Result Performing Organization Address [facility] de Phone Number [facility] [place] [address] * Hemoglobin A1c (11/22/2024 5:22 AM CDT) [facility] Hgb A1C 5.4 4.0 - 5.6 % Estimated Average Glucose 108 mg/dL [facility] Comment: The ADA recommends reporting an [...] BLOOD ORDERABLES Final Result Performing Organization Address [facility] de Phone Number [facility] [place] [address] * Folate (11/22/2024 5:22 AM CDT) Pathologist [facility] Emergency Department Folic acid >20.0 >=5.0 ng/mL Blood 11/22/2024 5:22 AM CDT 11/22/2024 9:34 AM CDT Earl Dos Santos MD LAB BLOOD ORDERABLES Final Result Performing Organization Address [facility] de Phone Number [facility] Department [place] [address] * Ferritin (11/22/2024 5:22 AM CDT) Pathologist [facility] Emergency Department Ferritin 197 30 - 400 ng/mL Blood 11/22/2024 5:22 AM CDT 11/22/2024 9:34 AM CDT Earl Dos Santos MD LAB BLOOD ORDERABLES Final Result Performing Organization Address [facility] [place] [address] * Vitamin B12 (11/22/2024 5:22 AM CDT) Pathologist [facility] Emergency Department Vitamin B12 317 230 - 1,250 pg/mL Blood 11/22/2024 5:22 AM CDT 11/22/2024 9:34 AM CDT Earl Dos Santos MD LAB BLOOD ORDERABLES Final Result Performing Organization Address City/[facility]/ZIP Co de Phone Number [facility] [place] [address] * COVID-19 Coronavirus RNA Nasopharyngeal (11/20/2024 5:30 AM CDT) COVID-19 RNA Negative Negative Nasopharyngeal 11/20/2024 5: 30 AM CDT 11/20/2024 5:[address] [facility] - 11/20/2024 6:18 AM CDT Is the patient experiencing any symptoms consistent with COVID (eg. Fever, cough, shortness of breath)?->No What is the reason for testing?->Screening prior to Behavioral health admission Interpretive data Testing performed by [facility]. This test is performed using the [employer] Xpert Xpress CoV-2 plus assay. This is a real-time RT-PCR test intended for the qualitative detection of nucleic acid from the SARS-CoV-2. This assay has been cleared by the [place] Food and Drug administration. The performance characteristics have been verified by the [facility]. Results must be considered in the clinical context, and a negative result does not rule out infection. Interpretive data last revised 2024. Interpretive data Testing performed by [facility]. This test is performed using the [employer] Xpert Xpress CoV-2 plus assay. This is a real-time RT-PCR test intended for the qualitative detection of nucleic acid from the SARS-CoV-2. This assay has been cleared by the [place] Food and Drug administration. The performance characteristics have been verified by the [facility]. Results must be considered in the clinical context, and a negative result does not rule out infection. Interpretive data last revised 2024. Latasha Mann NP LAB MICROBIOLOGY - GENERAL ORDERABLES Final Result [facility] [address] [place] [address] * Urinalysis reflex to microscopic and culture Urine (11/19/2024 4:39 PM CDT) Color, ur Straw Yellow Clarity, ur Clear Clear [facility] Specific gravity, ur 1.005 1.003 - 1.030 [facility] pH, urine 6.5 [facility] Comment: Interpretive Data U rine pH is affected by diet, medications, systemic acid-base disturbances, and renal tubular function. pH may affect urinary stone formation. For example, urine pH below 6.0 may help reduce the tendency for calcium phosphate stones and pH greater than 6.0 may reduce the tendency for uric acid stone formation. Source: [facility] Current Interpretive Data was last revised on 2017 Protein, ur ql Negative Negative [facility] Glucose, ur ql Negative Negative [facility] Ketones, ur Negative Negative [facility] Bilirubin, ur Negative Negative [facility] Blood, ur Negative Negative [facility] Urobilinogen, ur <2.0 <2.0 mg/dL [facility] Nitrite, ur Negative Negative [facility] Leukocyte esterase, ur Negative Negative [facility] UA reflex comment Reflex conditions for microscopic UA and culture not met. [facility] Urine 11/19/2024 4:39 PM CDT 11/19/2024 4:39 PM CDT Venessa HORTON LAB MICROBIOLOGY - [facility] AL ORDERABLES Final Result [facility] [address] [place] [address] * (ABNORMAL) Drugs of Abuse Screen, Urine without Confirmation (11/19/2024 4:39 PM CDT) Pathologist [facility] Amphetamine, ur Not Detected CutOff 500ng/mL Comment: Interpretive Data - Amphetamines: Samples containing greater than 500 ng/mL d-methamphetamine or other cross-reacting amphetamine compounds are reported as positive. Amphetamine immunoassays are subject to significant false positive rates due to cross-reactivity of non-amphetamine drugs. Confirmatory testing required for definitive results. Current Interpretive Data was last reviewed 2023. Barbiturates, ur Not Detected CutOff 200ng/mL [facility] Comment: Interpretive Data - Barbiturates: Samples containing greater than 200 ng/mL secobarbital or other cross-reacting barbiturate compounds are reported as positive. False positive and false negative results are possible. Confirmatory testing required for definitive results. Current Interpretive Data was last reviewed 2023. Benzodiazepines, ur Not Detected CutOff 100ng/mL [facility] Comment: Interpretive Data - Benzodiazepines: Samples containing greater than 100 ng/mL nordiazepam or other cross-reacting compounds are reported as positive. False positive and false negative results are possible. Confirmatory testing required for definitive results. Current Interpretive Data was last reviewed 2023. Cannabinoids, ur Screen Positive, presumptive (A) CutOff 50 ng/mL [facility] Comment: Interpretive Data - Cannabinoids: Samples containing greater than 50 ng/mL delta-9 THC -COOH or other cross- reacting compounds are reported as positive. False positive and false negative results are possible. Confirmatory testing required for definitive results. Current Interpretive Data was last reviewed 2023. Cocaine, ur Not Detected CutOff 150ng/mL [facility] Comment: Interpretive Data - Cocaine: Samples containing greater than 150 ng/mL benzoylecgonine or other cross- reacting compounds are reported as positive. False positive and false negative results are possible. Confirmatory testing required for definitive results. Current Interpretive Data was last reviewed 2023. Fentanyl, Ur Not Detected CutOff 5 ng/mL [facility] Comment: Interpretive Data - Fentanyl: Samples containing greater than 5 ng/mL norfentanyl, fentanyl, or other cross-reacting fentanyl compounds are reported as positive. False positive and false negative results are possible. Confirmatory testing required for definitive results. Current Interpretive Data was last reviewed 2023. Methadone, ur Not Detected CutOff 300ng/mL [facility] Comment: Interpretive Data - Methadone: Samples containing greater than 300 ng/mL d,l-methadone or other cross-reacting compounds are reported as positive. False positive and false negative results are possible. Confirmatory testing required for definitive results. Current Interpretive Data was last reviewed 2023. Opiates, ur Not Detected CutOff 300ng/mL [facility] Comment: Interpretive Data - Opiates: Samples containing greater than 300 ng/mL morphine or other cross-reacting compounds are reported as positive. False positive and false negative results are possible. Confirmatory testing required for definitive results. Current Interpretive Data was last reviewed 2023. Oxycodone, ur Not Detected CutOff 100ng/mL [facility] Comment: Interpretive Data - Oxycodone: Samples containing greater than 100 ng/mL oxycodone or other cross-reacting compounds are reported as positive. False positive and false negative results are possible. Confirmatory testing required for definitive results. Current Interpretive Data was last reviewed 2023. Phencyclidine, ur Not Detected CutOff 25 ng/mL [facility] Comment: Interpretive Data - Phencyclidine: Samples containing greater than 25 ng/mL phencyclidine or other cross-reacting compounds are reported as positive. False positive and false negative results are possible. Confirmatory testing required for definitive results. Current Interpretive Data was last reviewed 2023. Urine Creatinine 40 mg/dL [facility] Comment: Interpretive Data Urine Creatinine: < 10 mg/dL is extremely dilute = or > 10 but < 20 mg/dL is dilute = or > 20 mg/dL is normal Current Interpretive Data was last revised on 2017. Urine 11/19/2024 4:39 PM CDT 11/19/2024 4:[address] [facility] - 11/19/2024 5:28 PM CDT Drug of Abuse screening is performed by immunoassay for medical purposes only. This is not to be used for Pain Management purposes. Venessa HORTON LAB URINE ORDERABLES [facility] al Result [facility] [address] [place] [address] * eGFR (11/19/2024 4:01 PM CDT) eGFR [...] HORTON LAB BLOOD ORDERABLES Fin al Result [facility] [address] [place] [address] * Differential, auto (11/19/2024 4:01 PM CDT) Neutrophil abs 3.37 1.50 - 6.50 K/cumm Imm gran abs 0.02 0.00 - 0.10 K/cumm [facility] Lymphocyte abs 1.74 0.80 - 3.30 K/cumm [facility] Monocyte abs 0.43 0.20 - 0.80 K/cumm [facility] Eosinophil abs 0.05 0.00 - 0.50 K/cumm [facility] Basophil abs 0.04 0.00 - 0.10 K/cumm [facility] Neutrophil pct 59.6 % [facility] Comment: Interpretive Data Percent cell count reference ranges are not reported, since discordance with absolute values may lead to misinterpretation of CBC data. Current Interpretive Data was last revised on 2017. Imm gran pct 0.4 % [facility] Comment: Interpretive Data Percent cell count reference ranges are not reported, since discordance with absolute values may lead to misinterpretation of CBC data. Current Interpretive Data was last revised on 2017. Lymphocyte pct 30.8 % [facility] Comment: Interpretive Data Percent cell count reference ranges are not reported, since discordance with absolute values may lead to misinterpretation of CBC data. Current Interpretive Data was last revised on 2017. Monocyte pct 7.6 % [facility] Comment: Interpretive Data Percent cell count reference ranges are not reported, since discordance with absolute values may lead to misinterpretation of CBC data. Current Interpretive Data was last revised on 2017. Eosinophil pct 0.9 % [facility] Comment: Interpretive Data Percent cell count reference ranges are not reported, since discordance with absolute values may lead to misinterpretation of CBC data. Current Interpretive Data was last revised on 2017. Basophil pct 0.7 % [facility] Comment: Interpretive Data Percent cell count reference ranges are not reported, since discordance with absolute values may lead to misinterpretation of CBC data. Current Interpretive Data was last revised on 2017. Blood 11/19/2024 4:01 PM CDT 11/19/2024 4:11 PM CDT Venessa HORTON LAB BLOOD ORDERABLES Fin al Result Performing Organization Address City/[facility]/ZIP Co de Phone Number [facility] [address] [facility] [place] [address] * Thyroid Function Osborne (11/19/2024 4:01 PM CDT) TSH 0.42 0.30 - 4.20 mcIUnit/mL Blood 11/19/2024 4:01 PM CDT 11/19/2024 4:11 PM CDT Venessa HORTON LAB BLOOD ORDERABLES Fin al Result Performing Organization Address City/[facility]/ZIP Co de Phone Number [facility] [address] [place] [address] * (ABNORMAL) CBC with auto differential (11/19/2024 4:01 PM CDT) WBC 5.65 3.80 - 9.90 K/cumm Hgb 12.8(L) 13.0 - 17.5 g/dL [facility] Hct 36.8(L) 38.9 - 50.3 % [facility] Plt 335 150 - 400 K/cumm [facility] MPV 9.6 9.1 - 12.[address] [facility] RBC 4.25(L) 4.30 - 5.80 M/cumm [facility] MCV 86.6 81.3 - 96.[address] [facility] MCH 30.1 27.1 - 33.[address] [facility] MCHC 34.8 32.3 - 35.7 g/dL [facility] RDW CV 12.2 11.1 - 14.9 % [facility] RDW SD 38.5 35.7 - 48.[address] [facility] NRBC abs 0.00 0.00 - 0.01 K/cumm [facility] Blood 11/19/2024 4:01 PM CDT 11/19/2024 4:11 PM CDT Venessa HORTON LAB BLOOD ORDERABLES Fin al Result Performing Organization Address City/[facility] Co de Phone Number [facility] [address] [place] [address] * Ethanol (11/19/2024 4:01 PM CDT) [facility] Ethanol <10 <=10 mg/dL Comment: Interpretive Data Legal limit of intoxication > or = 80 mg/dL Levels > or = 400 mg/dL are potentially TOXIC. Current interpretive data was last revised on 2018. Blood 11/19/2024 4:01 PM CDT 11/19/2024 4:10 PM CDT Venessa HORTON LAB BLOOD ORDERABLES Fin al Result Performing Organization Address City/[facility]/ZIP Co de Phone Number [facility] [address] [place] [address] * (ABNORMAL) Lipid panel (11/19/2024 4:01 PM [...] revised on 2018. Triglycerides 115 <=149 mg/dL [facility] Comment: Interpretive Data Ages < [...] revised on 2018. HDL 47 >=40 mg/dL [facility] Comment: Interpretive Data Ages < [...] on 2018. LDL, calculated 150(H) <=129 mg/dL [facility] Comment: Interpretive Data Ages < [...] revised on 2024. Non-HDL Cholesterol 171 mg/dL [facility] Comment: Interpretive Data Ages < [...] last revised on 2018. Chol/HDL ratio 5 [facility] Blood 11/19/2024 4:01 PM CDT 11/19/2024 4:11 PM CDT us Earl Dos Santos MD LAB BLOOD ORDERABLES Final Result [facility] [address] [place] [address] * (ABNORMAL) Basic metabolic panel (11/19/2024 4:01 PM CDT) Sodium 137 135 - 145 mmol/L Potassium, pl 4.2 3.3 - 4.9 mmol/L [facility] Chloride 99 97 - 110 mmol/L [facility] CO2 26 22 - 32 mmol/L [facility] Anion gap 12 2 - 15 mmol/L [facility] BUN 4(L) 6 - 25 mg/dL [facility] Creatinine 0.78(L) 0.80 - 1.30 mg/dL [facility] Glucose 117 70 - 199 mg/dL [facility] Comment: Interpretive Data Fasting glucose [...] 2022. Calcium 9.4 8.5 - 10.3 mg/dL [facility] Blood 11/19/2024 4:01 PM CDT 11/19/2024 4:11 PM CDT Venessa HORTON LAB BLOOD ORDERABLES Fin al Result [facility] [address] [place] [address] * Urinalysis reflex to microscopic and culture Urine (11/11/2024 5:02 AM CDT) Color, ur Straw Yellow Clarity, ur Clear Clear [facility] Specific gravity, ur 1.005 1.003 - 1.030 [facility] pH, urine 7.0 [facility] Comment: Interpretive Data U rine pH is affected by diet, medications, systemic acid-base disturbances, and renal tubular function. pH may affect urinary stone formation. For example, urine pH below 6.0 may help reduce the tendency for calcium phosphate stones and pH greater than 6.0 may reduce the tendency for uric acid stone formation. Source: [facility] Current Interpretive Data was last revised on 2017 Protein, ur ql Negative Negative [facility] Glucose, ur ql Negative Negative [facility] Ketones, ur Negative Negative [facility] Bilirubin, ur Negative Negative [facility] Blood, ur Negative Negative [facility] Urobilinogen, ur <2.0 <2.0 mg/dL [facility] Nitrite, ur Negative Negative [facility] Leukocyte esterase, ur Negative Negative [facility] UA reflex comment Reflex conditions for microscopic UA and culture not met. [facility] Urine 11/11/2024 5:02 AM CDT 11/11/2024 5:21 AM CDT us Manolo Allen MD LAB MICROBIOLOGY - [facility] ORDERABLES Final Result [facility] [address] [place] [address] * (ABNORMAL) Drugs of Abuse Screen, Urine [...] 2023. Barbiturates, ur Not Detected CutOff 200ng/mL [facility] Comment: Interpretive Data - Barbiturates: Samples containing greater than 200 ng/mL secobarbital or other cross-reacting barbiturate compounds are reported as positive. False positive and false negative results are possible. Confirmatory testing required for definitive results. Current Interpretive Data was last reviewed 2023. Benzodiazepines, ur Not Detected CutOff 100ng/mL [facility] Comment: Interpretive Data - Benzodiazepines: Samples containing greater than 100 ng/mL nordiazepam or other cross-reacting compounds are reported as positive. False positive and false negative results are possible. Confirmatory testing required for definitive results. Current Interpretive Data was last reviewed 2023. Cannabinoids, ur Screen Positive, presumptive (A) CutOff 50 ng/mL [facility] Comment: Interpretive Data - Cannabinoids: Samples containing greater than 50 ng/mL delta-9 THC -COOH or other cross- reacting compounds are reported as positive. False positive and false negative results are possible. Confirmatory testing required for definitive results. Current Interpretive Data was last reviewed 2023. Cocaine, ur Not Detected CutOff 150ng/mL [facility] Comment: Interpretive Data - Cocaine: Samples containing greater than 150 ng/mL benzoylecgonine or other cross- reacting compounds are reported as positive. False positive and false negative results are possible. Confirmatory testing required for definitive results. Current Interpretive Data was last reviewed 2023. Fentanyl, Ur Not Detected CutOff 5 ng/mL [facility] Comment: Interpretive Data - Fentanyl: Samples containing greater than 5 ng/mL norfentanyl, fentanyl, or other cross-reacting fentanyl compounds are reported as positive. False positive and false negative results are possible. Confirmatory testing required for definitive results. Current Interpretive Data was last reviewed 2023. Methadone, ur Not Detected CutOff 300ng/mL [facility] Comment: Interpretive Data - Methadone: Samples containing greater than 300 ng/mL d,l-methadone or other cross-reacting compounds are reported as positive. False positive and false negative results are possible. Confirmatory testing required for definitive results. Current Interpretive Data was last reviewed 2023. Opiates, ur Not Detected CutOff 300ng/mL [facility] Comment: Interpretive Data - Opiates: Samples containing greater than 300 ng/mL morphine or other cross-reacting compounds are reported as positive. False positive and false negative results are possible. Confirmatory testing required for definitive results. Current Interpretive Data was last reviewed 2023. Oxycodone, ur Not Detected CutOff 100ng/mL [facility] Comment: Interpretive Data - Oxycodone: Samples containing greater than 100 ng/mL oxycodone or other cross-reacting compounds are reported as positive. False positive and false negative results are possible. Confirmatory testing required for definitive results. Current Interpretive Data was last reviewed 2023. Phencyclidine, ur Not Detected CutOff 25 ng/mL [facility] Comment: Interpretive Data - Phencyclidine: Samples containing greater than 25 ng/mL phencyclidine or other cross-reacting compounds are reported as positive. False positive and false negative results are possible. Confirmatory testing required for definitive results. Current Interpretive Data was last reviewed 2023. [facility]rine [facility] Comment: Interpretive Data Urine Creatinine: < 10 mg/dL is extremely dilute = or > 10 but < 20 mg/dL is dilute = or > 20 mg/dL is normal Current Interpretive Data was last revised on 2017. Urine 11/11/2024 5:02 AM CDT 11/11/2024 5:21 AM CDT Narrative [facility] - 11/11/2024 5:49 AM CDT Drug of Abuse screening is performed by immunoassay for medical purposes only. This is not to be used for Pain Management purposes. Manolo Allen MD LAB URINE ORDERABLES nal Result [facility] [address] [place] [address] * eGFR (11/11/2024 4:38 AM CDT) eGFR [...] Bernstein DO LAB BLOOD ORDERABLES Final Result [facility] [address] [place] [address] * Differential, auto (11/11/2024 4:38 AM CDT) Neutrophil abs 3.14 1.50 - 6.50 K/cumm Imm gran abs 0.03 0.00 - 0.10 K/cumm [facility] Lymphocyte abs 1.64 0.80 - 3.30 K/cumm [facility] Monocyte abs 0.49 0.20 - 0.80 K/cumm [facility] Eosinophil abs 0.07 0.00 - 0.50 K/cumm [facility] Basophil abs 0.05 0.00 - 0.10 K/cumm [facility] Neutrophil pct 57.9 % [facility] Comment: Interpretive Data Percent cell count reference ranges are not reported, since discordance with absolute values may lead to misinterpretation of CBC data. Current Interpretive Data was last revised on 2017. Imm gran pct 0.6 % [facility] Comment: Interpretive Data Percent cell count reference ranges are not reported, since discordance with absolute values may lead to misinterpretation of CBC data. Current Interpretive Data was last revised on 2017. Lymphocyte pct 30.3 % [facility] Comment: Interpretive Data Percent cell count reference ranges are not reported, since discordance with absolute values may lead to misinterpretation of CBC data. Current Interpretive Data was last revised on 2017. Monocyte pct 9.0 % [facility] Comment: Interpretive Data Percent cell count reference ranges are not reported, since discordance with absolute values may lead to misinterpretation of CBC data. Current Interpretive Data was last revised on 2017. Eosinophil pct 1.3 % [facility] Comment: Interpretive Data Percent cell count reference ranges are not reported, since discordance with absolute values may lead to misinterpretation of CBC data. Current Interpretive Data was last revised on 2017. Basophil pct 0.9 % [facility] Comment: Interpretive Data Percent cell count reference ranges are not reported, since discordance with absolute values may lead to misinterpretation of CBC data. Current Interpretive Data was last revised on 2017. Blood 11/11/2024 4:38 AM CDT 11/11/2024 4:47 AM CDT Manolo Allen MD LAB BLOOD ORDERABLES Fi nal Result Performing Organization Address City/[facility]/ZIP Co de Phone Number [facility] [address] [place] [address] * (ABNORMAL) CBC with auto differential (11/11/2024 4:38 AM CDT) WBC 5.42 3.80 - 9.90 K/cumm Hgb 12.6(L) 13.0 - 17.5 g/dL [facility] Hct 36.1(L) 38.9 - 50.3 % [facility] Plt 295 150 - 400 K/cumm [facility] MPV 9.8 9.1 - 12.[address] [facility] RBC 4.17(L) 4.30 - 5.80 M/cumm [facility] MCV 86.6 81.3 - 96.[address] [facility] MCH 30.2 27.1 - 33.[address] [facility] MCHC 34.9 32.3 - 35.7 g/dL [facility] RDW CV 12.1 11.1 - 14.9 % [facility] RDW SD 38.8 35.7 - 48.[address] [facility] NRBC abs 0.00 0.00 - 0.01 K/cumm [facility] Blood 11/11/2024 4:38 AM CDT 11/11/2024 4:47 AM CDT Manolo Allen MD LAB BLOOD ORDERABLES Fi nal Result Performing Organization Address City/[facility]/ZIP Co de Phone Number [facility] [address] [facility] [place] [address] * Ethanol (11/11/2024 4:38 AM CDT) Ethanol <10 <=10 mg/dL Comment: Interpretive Data Legal limit of intoxication > or = 80 mg/dL Levels > or = 400 mg/dL are potentially TOXIC. Current interpretive data was last revised on 2018. Blood 11/11/2024 4:38 AM CDT 11/11/2024 4:47 AM CDT Manolo Allen MD LAB BLOOD ORDERABLES Fi nal Result Performing Organization Address [facility] Co de Phone Number [facility] [address] [facility] [place] [address] * Acetaminophen level (11/11/2024 4:38 AM CDT) [...] after ingestion Consult toxicology or poison control ([phone]) for unknown ingestion time. Current interpretive data was last revised 2023. Blood 11/11/2024 4:38 AM CDT 11/11/2024 4:47 AM CDT Manolo Allen MD LAB BLOOD ORDERABLES Fi nal Result Performing Organization Address City/[facility]/ZIP Co de Phone Number [facility] [address] [facility] [place] [address] * Salicylate level (11/11/2024 4:38 AM CDT) Salicylate <9.0 <=9.0 mg/dL Comment: Interpretive Data Toxic: 30 mg/dL or greater. Current interpretive data was last revised 2023. Blood 11/11/2024 4:38 AM CDT 11/11/2024 4:47 AM CDT Manolo Allen MD LAB BLOOD ORDERABLES Fi nal Result Performing Organization Address City/[facility] Co de Phone Number [facility] [address] [place] [address] * Hepatic function panel (11/11/2024 4:38 AM CDT) Bilirubin, total 0.4 0.1 - 1.2 mg/dL Bilirubin, direct <0.2 0.1 - 0.3 mg/dL [facility] Protein, pl 6.7 6.5 - 8.5 g/dL [facility] Albumin 4.1 3.5 - 5.0 g/dL [facility] Alk phos 67 40 - 130 Units/L [facility] ALT 23 7 - 55 Units/L [facility] AST 26 10 - 50 Units/L [facility] Blood 11/11/2024 4:38 AM CDT 11/11/2024 4:47 AM CDT Manolo Allen MD LAB BLOOD ORDERABLES Fi nal Result Performing Organization Address [facility] Co de Phone Number [facility] [address] [place] [address] * (ABNORMAL) Basic metabolic panel (11/11/2024 4:38 AM CDT) Sodium 141 135 - 145 mmol/L Potassium, pl 3.7 3.3 - 4.9 mmol/L [facility] Chloride 104 97 - 110 mmol/L [facility] CO2 23 22 - 32 mmol/L [facility] Anion gap 14 2 - 15 mmol/L [facility] BUN 9 6 - 25 mg/dL [facility] Creatinine 0.75(L) 0.80 - 1.30 mg/dL [facility] Glucose 101 70 - 199 mg/dL [facility] Comment: Interpretive Data Fasting glucose [...] 2022. Calcium 9.1 8.5 - 10.3 mg/dL [facility] Blood 11/11/2024 4:38 AM CDT 11/11/2024 4:47 AM CDT Andrew Bernstein DO LAB BLOOD ORDERABLES Final Result [facility] [address] [place] [address] from Last 3 Months Insurance [facility] HMO/PPO Address: [facility] [address] [place] [address] [facility] CHOICE PLUS [facility] HMO/PPO Address: [facility] [address] [place] [address] [facility] Advance Directives For more information, please contact: [phone] * Full Code (Latest Code Status on File) Date Activated Date Inactivated Comments 11/20/2024 12:58 PM 11/22/2024 8:05 PM Care Teams Tube Cutter Relationship Specialty Start Date End Date Chelsea Mccormick MD PCP - General Family Medicine 07/29/19 Soco Weeks MD [address] [id number] [place] [address] Resident Psychiatry 11/25/24 02/04/25
[2024-12-03 20:24] LABS: Basophils Percent Auto 0.6 % (0.2-1.2); Eosinophils Percent Auto 0.5 % (0-4.4); Hematocrit 35.5 % (42.0-52.0); Hemoglobin 12.4 g/dL (14.0-18.0); Immature Granulocyte Absolute 0.01 K/mm3 (0.00-0.031); Immature Granulocyte Percent A 0.2 % (0-0.5); Lymphocytes Absolute Auto 1.27 K/mm3 (0.9-3.2); Lymphocytes Percent Auto 20.4 % (18.3-44.2); Mean Corpuscular HGB Conc 34.9 g/dl (32-36); Mean Corpuscular Hemoglobin 30.5 pg (26-34); Mean Corpuscular Volume 87.2 fl (80-100); Mean Platelet Volume 9.4 fl (7.4-10.4); Monocytes Absolute Auto 0.4 K/mm3 (0.1-0.6); Monocytes Percent Auto 6.6 % (2.6-8.5); Neutrophils Absolute Auto 4.5 K/mm3 (1.3-6.7); Neutrophils Percent Auto 71.7 % (45.5-73.1); Platelet Count Result 315 k/mm3 (150-375); Red Blood Count 4.07 M/mm3 (4.6-6.20); Red Cell Distribution Width 12.8 % (11.5-14.5); White Blood Count 6.2 K/mm3 (4.5-10.0)
--- NOTE | 2024-12-03 20:25 | PC.NURSE ---
Patient instructed multiple times to change into green scrubs. Patient making excuses and not changing, security assists patient.
[2024-12-03 20:34] LABS: Alanine Aminotransferase 29 U/L (6-50); Albumin Level 4.5 g/dL (3.5-5.1); Alkaline Phosphatase 62 U/L (38-126); Anion Gap 10 mmol/L (4-12); Aspartate Amino Transferase 38 U/L (17-59); Bilirubin,Total 0.7 mg/dL (0.2-1.3); Blood Urea Nitrogen 8 mg/dL (9-20); Carbon Dioxide 27 mmol/L (22-30); Chloride 103 mmol/L (98-107); Estimated CRCL calculation 113 ml/min; Estimated Glomerular Filt Rate > 60; Glucose 110 mg/dL (65-110); Potassium 3.5 mmol/L (3.4-5.0); Sodium 140 mmol/L (137-145)
[2024-12-03 20:35] LABS: Ethanol < 10 mg/dL (<10)
--- NOTE | 2024-12-03 20:45 | PC.NURSE ---
Patient changed into greens scrubs with assistance from security. Patient also provided ua.
[2024-12-03 20:49] LABS: Add Urine Microscopic? NO; Appearance Urine Clear (Clear); Bilirubin Urine Negative (Negative); Blood Urine Negative (Negative); Color Urine Yellow (Yellow); Glucose Urine UA Negative (Negative); Ketones Urine Trace mg/dL (Negative); Leukocyte Esterase Ur Negative LEU/UL (Negative); Nitrate Urine Negative (Negative); Protein Urine Negative (Negative); Specific Grav Ur 1.015 (1.001-1.035); pH Urine 6.5 (5.0-9.0)
[2024-12-03 21:01] LABS: Influenza A QL RT-PCR Negative (Negative); Influenza B QL RT-PCR Negative (Negative); RSV RNA, RT-PCR Negative (Negative); SARS-CoV-2 RNA PCR Negative (Negative)
[2024-12-03 21:04] LABS: Thyroid Stimulating Hormone Reflex 0.341 uIU/mL (0.465-4.68)
[2024-12-03 21:05] LABS: Amphetamine Screen Urine Negative (Negative); Barbiturate Screen Urine Negative (Negative); Benzodiazepines Screen Urine Negative (Negative); Cannabinoid Screen Urine Positive (Negative); Cocaine Screen Urine Negative (Negative); Methadone Screen Urine Negative (Negative); Opiate Screen Urine Negative (Negative); Phencyclidine Screen Urine Negative (Negative)
--- NOTE | 2024-12-03 21:38 | PC.NURSE ---
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
--- NOTE | 2024-12-03 21:42 | PC.NURSE ---
Patent is pacing the floor and ambulates to the bathroom. Security remains at bedside with sitter.
--- NOTE | 2024-12-03 21:58 | PC.NURSE ---
Pt presents to ED for psych evaluation, per [employer] pt was found wandering in neighbors backyard. Pt states he was walking home when [employer] picked him up, denies SI. Pt has sitter at bedside, and wearing green scrubs.
--- NOTE | 2024-12-03 22:23 | PC.NURSE ---
Crisis at bedside.
[2024-12-03 22:42] LABS: Free T4 Free Thyroxine Reflex 1.27 ng/dL (0.78-2.19)
--- NOTE | 2024-12-03 22:45 | PC.NURSE ---
ERP speaking with patient. Patient denies any SI/HI.
[2024-12-03 23:31] LABS: Total Triiodothyronine (T3) 1.31 NG/ML (0.97-1.69)
== END 2024-12-03 23:24 | disposition home or self-care (01) ==
PROVIDERS: Emergency Provider Student in an Organized Health Care Education/Training Program
DX: F99 Mental disorder, not otherwise specified (principal); G90.50 Complex regional pain syndrome I, unspecified; Z87.891 Personal history of nicotine dependence; Z11.59 Encounter for screening for other viral diseases
CPT/HCPCS: 36415; 80053; 80307; 81003; 82077; 84439; 84443; 84480; 85025; 87637; 99284